=== PATIENT | female | born 1950 | race Caucasian/White ===

== ENCOUNTER 2017-07-22 08:02 | Inpatient (IN) | payer MEDICARE, OTHER ==
[~2017-07-22] VITALS: Ht 162.6 cm; Wt 89.3 kg
[2017-07-22] MEDS ORDERED: FAMOTIDINE 20 MG TABLET ONE (09:21)
[2017-07-22 09:29] LABS: ALBUMIN 3.5 g/dL (3.4-5.0); ANION GAP 8 mmol/L (5-15); CALCIUM 8.3 mg/dL (8.5-10.1); CHLORIDE 104 mmol/L (98-107); CREATININE 0.62 mg/dL (0.55-1.02)
[2017-07-22] MEDS ORDERED: FAMOTIDINE 20 MG TABLET PO ONE (09:30)
[2017-07-22 09:40] LABS: MEAN CORPUSCULAR VOLUME 102.9 fL (80-100); MEAN PLATELET VOLUME 9.1 fL (7.4-10.4); RED BLOOD COUNT 3.39 x10^6/uL (3.82-5.3); RED CELL DISTRIBUTION WIDTH 18.7 % (9.6-15.2)
[2017-07-22 09:41] LABS: PLATELET COUNT 24 x10^3/uL (130-400)
[2017-07-22 09:42] LABS: MD YES
[2017-07-22 09:50] LABS: LYMPH#(MANUAL) 4.43 x10^3/uL (1-3.4); LYMPHS% (MANUAL) 9 % (22-44)
[2017-07-22 09:52] LABS: ANISOCYTOSIS 1+; OTHER CELLS # (MANUAL) 44.77 x10^3/uL (0-0)
[2017-07-22 09:53] LABS: POLYCHROMASIA 1+
[2017-07-22 09:54] LABS: <PLATELET ESTIMATE> DECREASED; <PLT MORPHOLOGY> NORMAL PLT MORPH
[2017-07-22 09:55] LABS: OTHER CELLS % (MANUAL) 91 % (0-0)
[2017-07-22] MEDS ORDERED: SODIUM CHLORIDE 0.9% 1,000ML IVBOLUS ONE (10:00)
[2017-07-22] MEDS ORDERED: VANCOMYCIN PER PHARMACY MC ONE (10:30)
[2017-07-22] MEDS ORDERED: VANCOMYCIN 1,500 MG in SODIUM CHLORIDE 0.9% 250 ML IV ONE (10:30)
[2017-07-22] MEDS ORDERED: CEFTRIAXONE PMX 1GM/50ML 50 ML IVPB ONE (10:30)
[2017-07-22 10:37] LABS: HCT (SEDRATE) 35.8 % (34.6-47.8)
[2017-07-22 11:36] VITALS: BP 167/81
[2017-07-22 11:36] LABS: INTERNATIONAL NORMALIZED RATIO 1.02 (0.93-1.1); PROTHROMBIN TIME 10.6 Seconds (9.6-11.5)
[2017-07-22] MEDS ORDERED: ZOLPIDEM 5MG TABLET PO PRN (12:00)
[2017-07-22] MEDS ORDERED: hydrALAzine 20 MG/ML, 1ML IVPush PRN (12:00)
[2017-07-22] MEDS ORDERED: POLYETHYLENE GLYCOL 17 GM PACKET PO PRN (12:00)
[2017-07-22] MEDS ORDERED: BISACODYL 10 MG SUPP PR PRN (12:00)
[2017-07-22] MEDS ORDERED: LABETALOL 5MG/ML, 20ML IVPush PRN (12:00)
[2017-07-22 12:38] LABS: FREE T4 (FREE THYROXINE) 1.38 ng/dL (0.76-1.46); THYROID STIMULATING HORMONE 0.039 mIU/L (0.358-3.740)
[2017-07-22] MEDS ORDERED: PHARMACOKINETIC CONSULTATION MC ONE (13:00)
[2017-07-22] MEDS ORDERED: VANCOMYCIN PER PHARMACY MC PRN (13:00)
[2017-07-22] MEDS ORDERED: PHARMACOKINETIC MONITORING MC PRN (13:00)
[2017-07-22] MEDS: NS + 20MEQ KCL 1,000 ML IV SCH (13:03)
[2017-07-22] MEDS: CEFTRIAXONE PMX 1GM/50ML 50 ML IV SCH (13:04)
[2017-07-22] MEDS: DIPHENHYDRAMINE 25 MG CAPSULE PO PRN ×2 (13:05→22:23)
[2017-07-22 13:39] VITALS: BP 139/79
[2017-07-22 14:40] LABS: HIT RESULT POSITIVE (NEGATIVE)
[2017-07-22] MEDS: HYDROcodone/APAP 5/325 TABLET PO PRN (17:48)
[2017-07-22 19:03] LABS: MEAN CORPUSCULAR HEMOGLOBIN 35.6 pg (27.0-34.8); MEAN CORPUSCULAR HGB CONC 34.3 g/dL (32.4-35.8); MEAN CORPUSCULAR VOLUME 103.9 fL (80-100); MEAN PLATELET VOLUME 8.8 fL (7.4-10.4); RED BLOOD COUNT 2.85 x10^6/uL (3.82-5.3); RED CELL DISTRIBUTION WIDTH 18.7 % (9.6-15.2)
[2017-07-22 19:07] LABS: PLATELET COUNT 22 x10^3/uL (130-400)
[2017-07-22 19:12] VITALS: BP 110/64
[2017-07-22 19:22] LABS: MD YES
[2017-07-22 19:33] LABS: LYMPHS% (MANUAL) 4 % (22-44); SEG#(MANUAL) 0.55 x10^3/uL (1.8-6.8); SEGS% (MANUAL) 1 % (42-75)
[2017-07-22 19:35] LABS: BLASTS # (MANUAL) 52.35 x10^3/uL (0-0); BLASTS % (MANUAL) 95 % (0-0); NRBC % (MANUAL) 1 % (0-1)
[2017-07-22 19:37] LABS: ANISOCYTOSIS 1+; POLYCHROMASIA 1+
[2017-07-22 19:38] LABS: <PLATELET ESTIMATE> DECREASED
[2017-07-22 19:40] LABS: <PLT MORPHOLOGY> NORMAL PLT MORPH
[2017-07-23 00:47] VITALS: BP 145/74
[2017-07-23] MEDS: ACETAMINOPHEN 325 MG TABLET PO PRN (00:48)
[2017-07-23] MEDS: CEFTRIAXONE PMX 1GM/50ML 50 ML IV SCH ×2 (01:02→12:20)
[2017-07-23] MEDS: NS + 20MEQ KCL 1,000 ML IV SCH ×2 (02:13→21:55)
[2017-07-23] MEDS: VANCOMYCIN 1,500 MG in SODIUM CHLORIDE 0.9% 250 ML IV SCH ×2 (04:21→22:30)
[2017-07-23 04:48] LABS: ANION GAP 9 mmol/L (5-15); CHLORIDE 105 mmol/L (98-107)
[2017-07-23 04:54] LABS: ALANINE AMINOTRANSFERASE 94 U/L (12-78); ALBUMIN 2.8 g/dL (3.4-5.0); ALKALINE PHOSPHATASE 102 U/L (45-117); BILIRUBIN,TOTAL 0.9 mg/dL (0.2-1.0); CALCIUM 7.8 mg/dL (8.5-10.1); CREATININE 0.47 mg/dL (0.55-1.02)
[2017-07-23 05:12] LABS: MEAN CORPUSCULAR HEMOGLOBIN 35.2 pg (27.0-34.8); MEAN CORPUSCULAR VOLUME 103.7 fL (80-100); MEAN PLATELET VOLUME 9.3 fL (7.4-10.4); RED BLOOD COUNT 2.99 x10^6/uL (3.82-5.3); RED CELL DISTRIBUTION WIDTH 18.2 % (9.6-15.2)
[2017-07-23 05:13] LABS: PLATELET COUNT 19 x10^3/uL (130-400)
[2017-07-23 05:14] LABS: MD YES
[2017-07-23 05:16] LABS: ANISOCYTOSIS 1+; BLASTS # (MANUAL) 46.63 x10^3/uL (0-0); BLASTS % (MANUAL) 87 % (0-0); LYMPH#(MANUAL) 4.29 x10^3/uL (1-3.4); LYMPHS% (MANUAL) 8 % (22-44); MONOS#(MANUAL) 2.68 x10^3/uL (0.3-2.7); MONOS% (MANUAL) 5 % (2-9); POLYCHROMASIA 1+
[2017-07-23 05:17] LABS: <PLATELET ESTIMATE> DECREASED; <PLT MORPHOLOGY> NORMAL PLT MORPH
[2017-07-23 06:12] LABS: SEGS% (MANUAL) 0 % (42-75)
[2017-07-23] MEDS ORDERED: LIDOCAINE 1%, 20ML ONE (07:54)
[2017-07-23] MEDS ORDERED: MIDAZOLAM 1 MG/ML, 5ML ONE (08:00)
[2017-07-23] MEDS ORDERED: FENTANYL PF 100 MCG/2ML ONE (08:00)
[2017-07-23] MEDS ORDERED: FLUMAZENIL 0.1 MG/1 ML, 5ML ONE (08:01)
[2017-07-23] MEDS ORDERED: NALOXONE 1 MG/ML, 2ML ONE (08:01)
[2017-07-23 09:23] VITALS: BP 137/78
[2017-07-23] MEDS: PANTOPROZOLE 40MG TABLET PO SCH (09:51)
[2017-07-23] MEDS: HYDROcodone/APAP 5/325 TABLET PO PRN ×3 (11:47→21:54)
[2017-07-23 13:25] LABS: RED BLOOD COUNT 2.86 x10^6/uL (3.82-5.3)
[2017-07-23 13:28] LABS: ABSOLUTE RETICS # 0.091 x10^6/uL (0.5-2.5); RETICULOCYTE COUNT % 3.2 % (0.5-1.5)
[2017-07-23 13:33] LABS: ALANINE AMINOTRANSFERASE 100 U/L (12-78); ALBUMIN 2.7 g/dL (3.4-5.0); ANION GAP 9 mmol/L (5-15); CALCIUM 7.6 mg/dL (8.5-10.1); CHLORIDE 105 mmol/L (98-107); CREATININE 0.53 mg/dL (0.55-1.02)
[2017-07-23 14:00] LABS: ALKALINE PHOSPHATASE 125 U/L (45-117); FOLATE LEVEL 15.5 ng/mL (3.1-17.5); TOTAL PROTEIN 6.4 g/dL (6.4-8.2)
[2017-07-23 15:55] VITALS: BP 154/81
[2017-07-23 19:12] VITALS: BP 129/82
[2017-07-24] VITALS (7 sets, daily range): BP systolic 125–168; BP diastolic 69–78
[2017-07-24] MEDS: CEFTRIAXONE PMX 1GM/50ML 50 ML IV SCH ×3 (00:27→23:37)
[2017-07-24] MEDS: HYDROcodone/APAP 5/325 TABLET PO PRN ×4 (02:04→21:51)
[2017-07-24 04:44] LABS: ABSOLUTE RETICS # 0.077 x10^6/uL (0.5-2.5); RED BLOOD COUNT 2.69 x10^6/uL (3.82-5.3); RETICULOCYTE COUNT % 2.87 % (0.5-1.5)
[2017-07-24 04:47] LABS: MEAN CORPUSCULAR HEMOGLOBIN 34.9 pg (27.0-34.8); MEAN CORPUSCULAR HGB CONC 33.8 g/dL (32.4-35.8); MEAN CORPUSCULAR VOLUME 103.3 fL (80-100); RED BLOOD COUNT 2.71 x10^6/uL (3.82-5.3); RED CELL DISTRIBUTION WIDTH 18.9 % (9.6-15.2)
[2017-07-24 04:58] LABS: ALANINE AMINOTRANSFERASE 111 U/L (12-78); ALBUMIN 2.4 g/dL (3.4-5.0); ANION GAP 8 mmol/L (5-15); CALCIUM 7.4 mg/dL (8.5-10.1); CHLORIDE 105 mmol/L (98-107); CREATININE 0.52 mg/dL (0.55-1.02)
[2017-07-24 05:05] LABS: ALKALINE PHOSPHATASE 144 U/L (45-117); BILIRUBIN,TOTAL 1.1 mg/dL (0.2-1.0); PLATELET COUNT 16 x10^3/uL (130-400)
[2017-07-24 05:08] LABS: MD YES
[2017-07-24 05:10] LABS: BLASTS # (MANUAL) 59.14 x10^3/uL (0-0); LYMPH#(MANUAL) 7.39 x10^3/uL (1-3.4); LYMPHS% (MANUAL) 11 % (22-44); MONOS#(MANUAL) 0.67 x10^3/uL (0.3-2.7); MONOS% (MANUAL) 1 % (2-9)
[2017-07-24 05:12] LABS: BLASTS % (MANUAL) 88 % (0-0)
[2017-07-24 05:13] LABS: <PLATELET ESTIMATE> DECREASED; <PLT MORPHOLOGY> NORMAL PLT MORPH; ANISOCYTOSIS 1+; POLYCHROMASIA 1+; SEGS% (MANUAL) 0 % (42-75)
[2017-07-24 05:15] LABS: SEDIMENTATION RATE 111 mm/hr (0-20)
[2017-07-24] MEDS: ONDANSETRON ODT 4 MG PO PRN (08:31)
[2017-07-24] MEDS: ALLOPURINOL 300 MG TABLET PO SCH (08:31)
[2017-07-24] MEDS: PANTOPROZOLE 40MG TABLET PO SCH (08:31)
[2017-07-24] MEDS: VANCOMYCIN 1,400 MG in SODIUM CHLORIDE 0.9% 250 ML IV SCH ×2 (10:32→21:33)
[2017-07-24] MEDS: NS + 20MEQ KCL 1,000 ML IV SCH (10:33)
[2017-07-24] MEDS ORDERED: LIDOCAINE 1%, 10ML INFIL STA (12:31)
[2017-07-24] MEDS ORDERED: LIDOCAINE 1%-EPI 1:100K, 50ML INFIL STA (12:39)
[2017-07-24] MEDS ORDERED: LIDOCAINE/PF 1%-EPI 1:200K, 30 ML INFIL ONE (13:00)
[2017-07-24] MEDS: DOCUSATE 100 MG CAPSULE PO PRN (14:30)
[2017-07-24] MEDS ORDERED: DIPHENHYDRAMINE 50 MG/ML, 1ML IVPush ONE (16:00)
[2017-07-24] MEDS ORDERED: ACETAMINOPHEN 325 MG TABLET PO ONE (16:00)
[2017-07-24 16:43] LABS: MEAN CORPUSCULAR HEMOGLOBIN 35.3 pg (27.0-34.8); MEAN CORPUSCULAR VOLUME 103.9 fL (80-100); MEAN PLATELET VOLUME 8.9 fL (7.4-10.4); RED BLOOD COUNT 2.62 x10^6/uL (3.82-5.3); RED CELL DISTRIBUTION WIDTH 18.7 % (9.6-15.2)
[2017-07-24 16:44] LABS: MD YES
[2017-07-24 16:45] LABS: BLASTS # (MANUAL) 71.58 x10^3/uL (0-0); BLASTS % (MANUAL) 92 % (0-0); LYMPH#(MANUAL) 4.67 x10^3/uL (1-3.4); LYMPHS% (MANUAL) 6 % (22-44); MONOS#(MANUAL) 0.78 x10^3/uL (0.3-2.7); MONOS% (MANUAL) 1 % (2-9); NRBC % (MANUAL) 1 % (0-1); PLATELET COUNT 20 x10^3/uL (130-400); SEG#(MANUAL) 0.78 x10^3/uL (1.8-6.8); SEGS% (MANUAL) 1 % (42-75)
[2017-07-24 16:46] LABS: <PLATELET ESTIMATE> DECREASED; <PLT MORPHOLOGY> NORMAL PLT MORPH; ANISOCYTOSIS 1+
[2017-07-24] MEDS ORDERED: HYDROXYUREA 500 MG CAPSULE PO ONE (18:00)
[2017-07-24] MEDS ORDERED: SODIUM CHLORIDE 0.9% 1,000 ML IV SCH (21:00)
[2017-07-25 02:56] VITALS: BP 143/74
[2017-07-25 04:37] LABS: ABSOLUTE RETICS # 0.043 x10^6/uL (0.5-2.5); MEAN CORPUSCULAR HEMOGLOBIN 35.4 pg (27.0-34.8); MEAN CORPUSCULAR HGB CONC 34.3 g/dL (32.4-35.8); MEAN PLATELET VOLUME 8.3 fL (7.4-10.4); RED BLOOD COUNT 2.39 x10^6/uL (3.82-5.3); RED CELL DISTRIBUTION WIDTH 18.9 % (9.6-15.2); RETICULOCYTE COUNT % 1.81 % (0.5-1.5)
[2017-07-25 04:42] LABS: PLATELET COUNT 49 x10^3/uL (130-400)
[2017-07-25 04:46] LABS: ALBUMIN 2.3 g/dL (3.4-5.0); ANION GAP 10 mmol/L (5-15); CALCIUM 7.9 mg/dL (8.5-10.1); CHLORIDE 103 mmol/L (98-107)
[2017-07-25 04:51] LABS: ALANINE AMINOTRANSFERASE 93 U/L (12-78); ALKALINE PHOSPHATASE 175 U/L (45-117); BILIRUBIN, DIRECT 0.7 mg/dL (0.1-0.2); BILIRUBIN,INDIRECT 0.6 mg/dL (0.0-2.0); BILIRUBIN,TOTAL 1.3 mg/dL (0.2-1.0); CREATININE 0.44 mg/dL (0.55-1.02); TOTAL PROTEIN 6.3 g/dL (6.4-8.2)
[2017-07-25] MEDS ORDERED: FUROSEMIDE 20 MG/2 ML IV ONE (05:00)
[2017-07-25 05:01] LABS: MD YES
[2017-07-25 05:40] LABS: LYMPH#(MANUAL) 3.46 x10^3/uL (1-3.4); LYMPHS% (MANUAL) 5 % (22-44); SEG#(MANUAL) 0.69 x10^3/uL (1.8-6.8); SEGS% (MANUAL) 1 % (42-75)
[2017-07-25 05:41] LABS: BLASTS # (MANUAL) 64.95 x10^3/uL (0-0); BLASTS % (MANUAL) 94 % (0-0)
[2017-07-25 05:42] LABS: ANISOCYTOSIS 1+
[2017-07-25 05:43] LABS: <PLATELET ESTIMATE> DECREASED; <PLT MORPHOLOGY> NORMAL PLT MORPH
[2017-07-25 06:48] VITALS: BP 147/77
[2017-07-25] MEDS ORDERED: POTASSIUM CHLORIDE 20 MEQ TAB.ER.PRT PO ONE (07:30)
[2017-07-25] MEDS ORDERED: OMNIPAQUE 350 MG/ML, 100ML BOTTLE ONE (08:42)
[2017-07-25] MEDS: ALLOPURINOL 300 MG TABLET PO SCH (08:47)
[2017-07-25] MEDS: PANTOPROZOLE 40MG TABLET PO SCH (08:47)
[2017-07-25] MEDS: SODIUM CHLORIDE 0.9% 1,000 ML IV SCH ×2 (08:48→18:17)
[2017-07-25] MEDS: VANCOMYCIN 1,400 MG in SODIUM CHLORIDE 0.9% 250 ML IV SCH ×2 (10:46→23:10)
[2017-07-25] MEDS ORDERED: ALBUTEROL SULFATE 2.5 MG/3 ML NPPB PRN (12:00)
[2017-07-25] MEDS ORDERED: FOSAPREPITANT 150 MG in SODIUM CHLORIDE 0.9% 145 ML IV ONE (12:30)
[2017-07-25] MEDS: ONDANSETRON 16 MG, DEXAMETHASONE 10 MG in SODIUM CHLORIDE 0.9% 50 ML IVPB SCH (12:53)
[2017-07-25 13:16] VITALS: BP 125/71
[2017-07-25] MEDS: IDARUBICIN IV SCH (14:09)
[2017-07-25] MEDS: SODIUM CHLORIDE 0.9% IV SCH (14:10)
[2017-07-25] MEDS: CYTARABINE IV SCH (14:10)
[2017-07-25] MEDS: CEFTRIAXONE PMX 2GM/50ML 50 ML IV SCH (14:45)
[2017-07-25] MEDS: ACYCLOVIR 200 MG CAPSULE PO SCH ×2 (15:08→20:50)
[2017-07-25 18:14] LABS: ALANINE AMINOTRANSFERASE 99 U/L (12-78); ALBUMIN 2.2 g/dL (3.4-5.0); ANION GAP 7 mmol/L (5-15); CALCIUM 7.7 mg/dL (8.5-10.1); CHLORIDE 102 mmol/L (98-107); CREATININE 0.54 mg/dL (0.55-1.02); MD YES; MEAN CORPUSCULAR HEMOGLOBIN 34.9 pg (27.0-34.8); MEAN CORPUSCULAR HGB CONC 33.9 g/dL (32.4-35.8); MEAN PLATELET VOLUME 8.4 fL (7.4-10.4); RED BLOOD COUNT 2.85 x10^6/uL (3.82-5.3); RED CELL DISTRIBUTION WIDTH 18.5 % (9.6-15.2)
[2017-07-25 18:15] LABS: PLATELET COUNT 35 x10^3/uL (130-400)
[2017-07-25 18:16] LABS: ALKALINE PHOSPHATASE 248 U/L (45-117); BILIRUBIN,TOTAL 1.3 mg/dL (0.2-1.0); TOTAL PROTEIN 6.2 g/dL (6.4-8.2)
[2017-07-25 18:21] LABS: LYMPH#(MANUAL) 3.56 x10^3/uL (1-3.4); LYMPHS% (MANUAL) 9 % (22-44); MONOS% (MANUAL) 1 % (2-9)
[2017-07-25 18:22] LABS: BLASTS # (MANUAL) 35.64 x10^3/uL (0-0); BLASTS % (MANUAL) 90 % (0-0)
[2017-07-25 18:24] LABS: ANISOCYTOSIS 1+
[2017-07-25 18:25] LABS: <PLATELET ESTIMATE> DECREASED; <PLT MORPHOLOGY> NORMAL PLT MORPH
[2017-07-25 19:27] VITALS: BP 134/81
[2017-07-25] MEDS ORDERED: SODIUM CHLORIDE 0.9% 1,000 ML IV SCH (21:00)
[2017-07-25] MEDS: DOCUSATE 100 MG CAPSULE PO PRN (22:00)
[2017-07-26 02:01] VITALS: BP 150/76
[2017-07-26] MEDS: SODIUM CHLORIDE 0.9% 1,000 ML IV SCH ×3 (03:52→21:00)
[2017-07-26 04:38] LABS: ANION GAP 9 mmol/L (5-15); CALCIUM 7.7 mg/dL (8.5-10.1); CHLORIDE 108 mmol/L (98-107)
[2017-07-26 04:42] LABS: CREATININE 0.37 mg/dL (0.55-1.02)
[2017-07-26 04:43] LABS: ALANINE AMINOTRANSFERASE 90 U/L (12-78); ALKALINE PHOSPHATASE 223 U/L (45-117); BILIRUBIN,TOTAL 0.9 mg/dL (0.2-1.0); TOTAL PROTEIN 5.9 g/dL (6.4-8.2)
[2017-07-26 04:46] LABS: ABSOLUTE RETICS # 0.036 x10^6/uL (0.5-2.5); RETICULOCYTE COUNT % 1.62 % (0.5-1.5)
[2017-07-26 04:50] LABS: RED BLOOD COUNT 2.2 x10^6/uL (3.82-5.3)
[2017-07-26 06:07] LABS: MEAN CORPUSCULAR HEMOGLOBIN 35.1 pg (27.0-34.8); MEAN CORPUSCULAR HGB CONC 33.8 g/dL (32.4-35.8); MEAN CORPUSCULAR VOLUME 103.7 fL (80-100); RED BLOOD COUNT 2.21 x10^6/uL (3.82-5.3); RED CELL DISTRIBUTION WIDTH 18.9 % (9.6-15.2)
[2017-07-26 06:34] LABS: MD YES
[2017-07-26 06:38] LABS: MEAN PLATELET VOLUME 9.1 fL (7.4-10.4)
[2017-07-26 06:40] LABS: BLASTS # (MANUAL) 12.01 x10^3/uL (0-0); LYMPH#(MANUAL) 3.16 x10^3/uL (1-3.4); LYMPHS% (MANUAL) 20 % (22-44); MONOS#(MANUAL) 0.16 x10^3/uL (0.3-2.7); MONOS% (MANUAL) 1 % (2-9); SEG#(MANUAL) 0.47 x10^3/uL (1.8-6.8); SEGS% (MANUAL) 3 % (42-75)
[2017-07-26 06:41] LABS: <PLATELET ESTIMATE> DECREASED; <PLT MORPHOLOGY> NORMAL PLT MORPH; ANISOCYTOSIS 1+
[2017-07-26 06:43] LABS: BLASTS % (MANUAL) 76 % (0-0); PLATELET COUNT 34 x10^3/uL (130-400)
[2017-07-26 07:27] VITALS: BP 147/80
[2017-07-26] MEDS: PANTOPROZOLE 40MG TABLET PO SCH (08:24)
[2017-07-26] MEDS: ACYCLOVIR 200 MG CAPSULE PO SCH ×2 (08:24→20:39)
[2017-07-26] MEDS: ALLOPURINOL 300 MG TABLET PO SCH (08:24)
[2017-07-26] MEDS ORDERED: POTASSIUM CHLORIDE 20 MEQ TAB.ER.PRT PO ONE (08:30)
[2017-07-26] MEDS ORDERED: POTASSIUM PHOSPHATE 22 MEQ in SODIUM CHLORIDE 0.9% 500 ML IV ONE (08:30)
[2017-07-26] MEDS: VANCOMYCIN 1,400 MG in SODIUM CHLORIDE 0.9% 250 ML IV SCH (10:51)
[2017-07-26 12:32] VITALS: BP 137/78
[2017-07-26] MEDS: CEFTRIAXONE PMX 2GM/50ML 50 ML IV SCH (14:39)
[2017-07-26] MEDS: ONDANSETRON 16 MG, DEXAMETHASONE 10 MG in SODIUM CHLORIDE 0.9% 50 ML IVPB SCH (15:58)
[2017-07-26] MEDS: IDARUBICIN IV SCH (16:44)
[2017-07-26] MEDS: SODIUM CHLORIDE 0.9% IV SCH (16:46)
[2017-07-26] MEDS: CYTARABINE IV SCH (16:46)
[2017-07-26] MEDS ORDERED: CEFTAROLINE 600 MG in SODIUM CHLORIDE 0.9% 100 ML IV SCH (17:00)
[2017-07-26 18:22] LABS: ALANINE AMINOTRANSFERASE 143 U/L (12-78); ALBUMIN 1.8 g/dL (3.4-5.0); ANION GAP 11 mmol/L (5-15); CALCIUM 7.1 mg/dL (8.5-10.1); CHLORIDE 113 mmol/L (98-107); CREATININE 0.38 mg/dL (0.55-1.02)
[2017-07-26 18:26] LABS: ALKALINE PHOSPHATASE 195 U/L (45-117); BILIRUBIN,TOTAL 0.4 mg/dL (0.2-1.0); TOTAL PROTEIN 5.2 g/dL (6.4-8.2)
[2017-07-26 19:01] LABS: MEAN CORPUSCULAR HEMOGLOBIN 34.7 pg (27.0-34.8); MEAN CORPUSCULAR HGB CONC 33.6 g/dL (32.4-35.8); MEAN CORPUSCULAR VOLUME 103.2 fL (80-100); MEAN PLATELET VOLUME 8.5 fL (7.4-10.4); RED BLOOD COUNT 2.04 x10^6/uL (3.82-5.3)
[2017-07-26 19:03] VITALS: BP 136/75
[2017-07-26 19:04] LABS: PLATELET COUNT 29 x10^3/uL (130-400)
[2017-07-26 19:34] LABS: MD YES
[2017-07-26 19:40] LABS: LYMPH#(MANUAL) 2.07 x10^3/uL (1-3.4); LYMPHS% (MANUAL) 23 % (22-44)
[2017-07-26 19:42] LABS: BLASTS # (MANUAL) 6.93 x10^3/uL (0-0); BLASTS % (MANUAL) 77 % (0-0); NRBC % (MANUAL) 1 % (0-1)
[2017-07-26 19:43] LABS: ANISOCYTOSIS 1+
[2017-07-26 19:44] LABS: <PLATELET ESTIMATE> DECREASED; <PLT MORPHOLOGY> NORMAL PLT MORPH
[2017-07-26] MEDS: DIPHENHYDRAMINE 25 MG CAPSULE PO PRN (20:39)
[2017-07-26] MEDS: ACETAMINOPHEN 325 MG TABLET PO PRN (20:39)
[2017-07-27] VITALS (9 sets, daily range): BP systolic 117–153; BP diastolic 75–83
[2017-07-27] MEDS: ONDANSETRON 2MG/ML, 2ML IVPush PRN ×2 (01:59→10:18)
[2017-07-27 04:24] LABS: ALANINE AMINOTRANSFERASE 141 U/L (12-78); ALBUMIN 1.9 g/dL (3.4-5.0); ANION GAP 8 mmol/L (5-15); CALCIUM 7.6 mg/dL (8.5-10.1); CHLORIDE 110 mmol/L (98-107); CREATININE 0.39 mg/dL (0.55-1.02)
[2017-07-27 04:27] LABS: ALKALINE PHOSPHATASE 196 U/L (45-117); BILIRUBIN,TOTAL 0.5 mg/dL (0.2-1.0); TOTAL PROTEIN 5.6 g/dL (6.4-8.2)
[2017-07-27 04:29] LABS: RETICULOCYTE COUNT % 1.83 % (0.5-1.5)
[2017-07-27] MEDS: DIPHENHYDRAMINE 25 MG CAPSULE PO PRN ×2 (04:43→21:34)
[2017-07-27] MEDS: ACETAMINOPHEN 325 MG TABLET PO PRN (04:43)
[2017-07-27] MEDS: CEFTAROLINE 600 MG in SODIUM CHLORIDE 0.9% 250 ML IV SCH ×2 (04:52→16:03)
[2017-07-27 06:03] LABS: MEAN CORPUSCULAR HEMOGLOBIN 35.4 pg (27.0-34.8); MEAN CORPUSCULAR HGB CONC 34.5 g/dL (32.4-35.8); MEAN CORPUSCULAR VOLUME 102.8 fL (80-100)
[2017-07-27 06:06] LABS: PLATELET COUNT 24 x10^3/uL (130-400)
[2017-07-27 06:14] LABS: MD YES
[2017-07-27 06:15] LABS: BAND#(MANUAL) 0.02 x10^3/uL; BANDS%(MANUAL) 1 % (0-7); BLASTS # (MANUAL) 0.81 x10^3/uL (0-0); LYMPH#(MANUAL) 0.86 x10^3/uL (1-3.4); LYMPHS% (MANUAL) 48 % (22-44); MONOS#(MANUAL) 0.04 x10^3/uL (0.3-2.7); MONOS% (MANUAL) 2 % (2-9); SEG#(MANUAL) 0.07 x10^3/uL (1.8-6.8); SEGS% (MANUAL) 4 % (42-75)
[2017-07-27 06:16] LABS: BLASTS % (MANUAL) 45 % (0-0)
[2017-07-27 06:17] LABS: <PLATELET ESTIMATE> DECREASED; <PLT MORPHOLOGY> NORMAL PLT MORPH
[2017-07-27 06:18] LABS: ANISOCYTOSIS 1+
[2017-07-27 06:22] LABS: NRBC % (MANUAL) 1 % (0-1)
[2017-07-27] MEDS ORDERED: LACTULOSE 20 GM/30 ML UDC PO PRN (09:00)
[2017-07-27] MEDS: DOCUSATE 100 MG CAPSULE PO SCH ×2 (09:00→21:33)
[2017-07-27] MEDS: ALLOPURINOL 300 MG TABLET PO SCH (09:42)
[2017-07-27] MEDS: ACYCLOVIR 200 MG CAPSULE PO SCH ×2 (09:42→21:34)
[2017-07-27] MEDS: PANTOPROZOLE 40MG TABLET PO SCH (09:42)
[2017-07-27 18:01] LABS: ALANINE AMINOTRANSFERASE 118 U/L (12-78); ALBUMIN 1.8 g/dL (3.4-5.0); ANION GAP 9 mmol/L (5-15); CALCIUM 6.7 mg/dL (8.5-10.1); CHLORIDE 113 mmol/L (98-107); CREATININE 0.38 mg/dL (0.55-1.02)
[2017-07-27 18:03] LABS: ALKALINE PHOSPHATASE 165 U/L (45-117); BILIRUBIN,TOTAL 0.6 mg/dL (0.2-1.0)
[2017-07-27 18:04] LABS: MEAN CORPUSCULAR HEMOGLOBIN 34.3 pg (27.0-34.8); MEAN CORPUSCULAR HGB CONC 34.8 g/dL (32.4-35.8); MEAN CORPUSCULAR VOLUME 98.6 fL (80-100); MEAN PLATELET VOLUME 9.1 fL (7.4-10.4); RED BLOOD COUNT 2.47 x10^6/uL (3.82-5.3); RED CELL DISTRIBUTION WIDTH 22.7 % (9.6-15.2)
[2017-07-27 18:20] LABS: PLATELET COUNT 17 x10^3/uL (130-400)
[2017-07-27] MEDS: ONDANSETRON 16 MG, DEXAMETHASONE 10 MG in SODIUM CHLORIDE 0.9% 50 ML IVPB SCH (18:24)
[2017-07-27] MEDS: CYTARABINE IV SCH (18:26)
[2017-07-27] MEDS: IDARUBICIN IV SCH (18:26)
[2017-07-27] MEDS: SODIUM CHLORIDE 0.9% IV SCH (18:26)
[2017-07-28 01:16] VITALS: BP 150/79
[2017-07-28] MEDS: CEFTAROLINE 600 MG in SODIUM CHLORIDE 0.9% 250 ML IV SCH ×2 (04:24→16:17)
[2017-07-28 04:51] LABS: ABSOLUTE RETICS # 0.024 x10^6/uL (0.5-2.5); MEAN CORPUSCULAR HGB CONC 34.3 g/dL (32.4-35.8); MEAN PLATELET VOLUME 8.9 fL (7.4-10.4); RED BLOOD COUNT 2.57 x10^6/uL (3.82-5.3); RED CELL DISTRIBUTION WIDTH 22.1 % (9.6-15.2); RETICULOCYTE COUNT % 0.95 % (0.5-1.5)
[2017-07-28 04:54] LABS: PLATELET COUNT 16 x10^3/uL (130-400)
[2017-07-28 04:58] LABS: ALANINE AMINOTRANSFERASE 112 U/L (12-78); ANION GAP 7 mmol/L (5-15); CHLORIDE 108 mmol/L (98-107); CREATININE 0.41 mg/dL (0.55-1.02)
[2017-07-28 05:02] LABS: ALKALINE PHOSPHATASE 160 U/L (45-117); BILIRUBIN,TOTAL 0.7 mg/dL (0.2-1.0); TOTAL PROTEIN 5.5 g/dL (6.4-8.2)
[2017-07-28] MEDS: ONDANSETRON 2MG/ML, 2ML IVPush PRN (05:32)
[2017-07-28 05:44] LABS: MD YES
[2017-07-28 05:53] LABS: <PLATELET ESTIMATE> DECREASED; LYMPH#(MANUAL) 0.49 x10^3/uL (1-3.4); LYMPHS% (MANUAL) 98 % (22-44); SEG#(MANUAL) 0.02 x10^3/uL (1.8-6.8); SEGS% (MANUAL) 3 % (42-75)
[2017-07-28 05:54] LABS: <PLT MORPHOLOGY> NORMAL PLT MORPH
[2017-07-28 05:55] LABS: ANISOCYTOSIS 1+
[2017-07-28 07:40] VITALS: BP 147/84
[2017-07-28] MEDS ORDERED: SODIUM CHLORIDE 0.9% 1,000 ML IV SCH (08:00)
[2017-07-28] MEDS: SODIUM CHLORIDE 0.9% 1,000 ML IV SCH (08:13)
[2017-07-28] MEDS: PANTOPROZOLE 40MG TABLET PO SCH (08:13)
[2017-07-28] MEDS: ACYCLOVIR 200 MG CAPSULE PO SCH ×2 (08:13→20:37)
[2017-07-28] MEDS: ALLOPURINOL 300 MG TABLET PO SCH (08:14)
[2017-07-28] MEDS: DOCUSATE 100 MG CAPSULE PO SCH ×2 (08:14→20:35)
[2017-07-28] MEDS ORDERED: FOSAPREPITANT 150 MG in SODIUM CHLORIDE 0.9% 145 ML IV ONE (12:30)
[2017-07-28 14:09] VITALS: BP 138/77
[2017-07-28] MEDS: ONDANSETRON 16 MG, DEXAMETHASONE 10 MG in SODIUM CHLORIDE 0.9% 50 ML IVPB SCH (18:37)
[2017-07-28 19:16] LABS: ALANINE AMINOTRANSFERASE 85 U/L (12-78); ALBUMIN 1.8 g/dL (3.4-5.0); ANION GAP 6 mmol/L (5-15); CHLORIDE 111 mmol/L (98-107)
[2017-07-28 19:36] LABS: MEAN CORPUSCULAR HEMOGLOBIN 33.9 pg (27.0-34.8); MEAN CORPUSCULAR HGB CONC 34.4 g/dL (32.4-35.8); MEAN CORPUSCULAR VOLUME 98.8 fL (80-100); MEAN PLATELET VOLUME 8.8 fL (7.4-10.4); RED BLOOD COUNT 2.24 x10^6/uL (3.82-5.3); RED CELL DISTRIBUTION WIDTH 21.4 % (9.6-15.2)
[2017-07-28 19:37] LABS: PLATELET COUNT 11 x10^3/uL (130-400)
[2017-07-28 19:38] LABS: MD YES
[2017-07-28 19:59] LABS: ALKALINE PHOSPHATASE 142 U/L (45-117); BILIRUBIN,TOTAL 0.9 mg/dL (0.2-1.0); CREATININE 0.31 mg/dL (0.55-1.02); TOTAL PROTEIN 4.9 g/dL (6.4-8.2)
[2017-07-28 20:14] VITALS: BP 142/75
[2017-07-28 20:23] LABS: <PLATELET ESTIMATE> DECREASED; <PLT MORPHOLOGY> QNS FOR PLT MORPH; ANISOCYTOSIS 1+; LYMPH#(MANUAL) 0.95 x10^3/uL (1-3.4); LYMPHS% (MANUAL) 95 % (22-44); MONOS#(MANUAL) 0.01 x10^3/uL (0.3-2.7); MONOS% (MANUAL) 1 % (2-9)
[2017-07-28 20:24] LABS: BLASTS # (MANUAL) 0.04 x10^3/uL (0-0); BLASTS % (MANUAL) 4 % (0-0)
[2017-07-28] MEDS: SODIUM CHLORIDE 0.9% IV SCH (20:32)
[2017-07-28] MEDS: CYTARABINE IV SCH (20:32)
[2017-07-28] MEDS ORDERED: [UNRECOGNIZED DRUG - OTHER] MC PRN (22:30)
[2017-07-29 03:55] VITALS: BP 166/93
[2017-07-29 04:32] LABS: ABSOLUTE RETICS # 0.031 x10^6/uL (0.5-2.5); RETICULOCYTE COUNT % 1.12 % (0.5-1.5)
[2017-07-29 04:37] LABS: MEAN CORPUSCULAR HEMOGLOBIN 34.5 pg (27.0-34.8); MEAN CORPUSCULAR VOLUME 98.6 fL (80-100); RED BLOOD COUNT 2.78 x10^6/uL (3.82-5.3); RED CELL DISTRIBUTION WIDTH 20.4 % (9.6-15.2)
[2017-07-29 04:40] LABS: CHLORIDE 105 mmol/L (98-107)
[2017-07-29 04:47] LABS: ALANINE AMINOTRANSFERASE 111 U/L (12-78); ALBUMIN 2.3 g/dL (3.4-5.0); ALKALINE PHOSPHATASE 156 U/L (45-117); ANION GAP 7 mmol/L (5-15); CALCIUM 8.1 mg/dL (8.5-10.1); CREATININE 0.41 mg/dL (0.55-1.02); TOTAL PROTEIN 5.8 g/dL (6.4-8.2)
[2017-07-29] MEDS: CEFTAROLINE 600 MG in SODIUM CHLORIDE 0.9% 250 ML IV SCH ×2 (04:57→18:14)
[2017-07-29] MEDS: SODIUM CHLORIDE 0.9% 1,000 ML IV SCH (04:58)
[2017-07-29 05:53] LABS: MD YES
[2017-07-29 05:55] LABS: MEAN PLATELET VOLUME 9.4 fL (7.4-10.4)
[2017-07-29 05:56] LABS: PLATELET COUNT 13 x10^3/uL (130-400)
[2017-07-29 05:58] LABS: LYMPH#(MANUAL) 0.44 x10^3/uL (1-3.4); LYMPHS% (MANUAL) 88 % (22-44); MONOS#(MANUAL) 0.02 x10^3/uL (0.3-2.7); MONOS% (MANUAL) 4 % (2-9)
[2017-07-29 05:59] LABS: ANISOCYTOSIS 1+; BLASTS # (MANUAL) 0.04 x10^3/uL (0-0); BLASTS % (MANUAL) 8 % (0-0); SEGS% (MANUAL) 0 % (42-75)
[2017-07-29 06:00] LABS: <PLATELET ESTIMATE> DECREASED; <PLT MORPHOLOGY> NORMAL PLT MORPH
[2017-07-29] MEDS: PANTOPROZOLE 40MG TABLET PO SCH (07:53)
[2017-07-29] MEDS: ACYCLOVIR 200 MG CAPSULE PO SCH ×2 (07:53→20:36)
[2017-07-29] MEDS: DOCUSATE 100 MG CAPSULE PO SCH ×2 (07:53→20:36)
[2017-07-29] MEDS: ALLOPURINOL 300 MG TABLET PO SCH (07:53)
[2017-07-29] MEDS: ONDANSETRON ODT 4 MG PO PRN (07:57)
[2017-07-29 08:45] VITALS: BP 152/75
[2017-07-29 12:51] VITALS: BP 164/110
[2017-07-29 13:04] VITALS: BP 167/84
[2017-07-29 19:24] VITALS: BP 162/79
[2017-07-29] MEDS: ONDANSETRON 16 MG, DEXAMETHASONE 10 MG in SODIUM CHLORIDE 0.9% 50 ML IVPB SCH (20:36)
[2017-07-29] MEDS: CYTARABINE IV SCH (21:44)
[2017-07-29] MEDS: SODIUM CHLORIDE 0.9% IV SCH (21:44)
[2017-07-30] VITALS (8 sets, daily range): BP systolic 146–171; BP diastolic 72–91
[2017-07-30] MEDS ORDERED: DIPHENHYDRAMINE 25 MG CAPSULE PO ONE (01:00)
[2017-07-30] MEDS ORDERED: ACETAMINOPHEN 325 MG TABLET PO ONE (01:00)
[2017-07-30 02:39] LABS: RETICULOCYTE COUNT % 1.81 % (0.5-1.5)
[2017-07-30 02:40] LABS: MEAN CORPUSCULAR HEMOGLOBIN 33.9 pg (27.0-34.8); MEAN CORPUSCULAR HGB CONC 34.2 g/dL (32.4-35.8); MEAN PLATELET VOLUME 7.3 fL (7.4-10.4); RED BLOOD COUNT 2.27 x10^6/uL (3.82-5.3); RED CELL DISTRIBUTION WIDTH 19.4 % (9.6-15.2)
[2017-07-30 02:42] LABS: PLATELET COUNT 10 x10^3/uL (130-400)
[2017-07-30 02:47] LABS: ALANINE AMINOTRANSFERASE 77 U/L (12-78); ALBUMIN 2.1 g/dL (3.4-5.0); ANION GAP 7 mmol/L (5-15); CALCIUM 7.8 mg/dL (8.5-10.1); CHLORIDE 106 mmol/L (98-107); CREATININE 0.41 mg/dL (0.55-1.02)
[2017-07-30 02:51] LABS: ALKALINE PHOSPHATASE 128 U/L (45-117); BILIRUBIN,TOTAL 0.8 mg/dL (0.2-1.0); TOTAL PROTEIN 5.2 g/dL (6.4-8.2)
[2017-07-30 02:58] LABS: MD YES
[2017-07-30 03:07] LABS: LYMPH#(MANUAL) 0.26 x10^3/uL (1-3.4); LYMPHS% (MANUAL) 88 % (22-44); MONOS#(MANUAL) 0.01 x10^3/uL (0.3-2.7); MONOS% (MANUAL) 2 % (2-9); SEG#(MANUAL) 0.02 x10^3/uL (1.8-6.8); SEGS% (MANUAL) 6 % (42-75)
[2017-07-30 03:08] LABS: BLASTS # (MANUAL) 0.01 x10^3/uL (0-0); BLASTS % (MANUAL) 4 % (0-0)
[2017-07-30 03:09] LABS: <PLATELET ESTIMATE> DECREASED; <PLT MORPHOLOGY> NORMAL PLT MORPH; ANISOCYTOSIS 1+
[2017-07-30] MEDS: ONDANSETRON ODT 4 MG PO PRN ×2 (04:23→19:32)
[2017-07-30] MEDS: CEFTAROLINE 600 MG in SODIUM CHLORIDE 0.9% 250 ML IV SCH ×2 (05:38→17:21)
[2017-07-30] MEDS: PANTOPROZOLE 40MG TABLET PO SCH (07:35)
[2017-07-30] MEDS: ONDANSETRON 2MG/ML, 2ML IVPush PRN (07:35)
[2017-07-30] MEDS: ACYCLOVIR 200 MG CAPSULE PO SCH ×2 (08:35→22:37)
[2017-07-30] MEDS: DOCUSATE 100 MG CAPSULE PO SCH ×2 (08:35→22:37)
[2017-07-30] MEDS: ALLOPURINOL 300 MG TABLET PO SCH (08:35)
[2017-07-30] MEDS: SODIUM CHLORIDE 0.9% 1,000 ML IV SCH ×2 (08:41→22:40)
[2017-07-30] MEDS: ACETAMINOPHEN 325 MG TABLET PO PRN (09:20)
[2017-07-30] MEDS: DIPHENHYDRAMINE 25 MG CAPSULE PO PRN (09:20)
[2017-07-30] MEDS: POSACONAZOLE 200 MG/5 ML ORAL SUSP PO SCH ×2 (11:35→22:38)
[2017-07-30] MEDS: ONDANSETRON 16 MG, DEXAMETHASONE 10 MG in SODIUM CHLORIDE 0.9% 50 ML IVPB SCH (21:25)
[2017-07-30] MEDS: CYTARABINE IV SCH (22:19)
[2017-07-30] MEDS: SODIUM CHLORIDE 0.9% IV SCH (22:19)
[2017-07-31] VITALS (10 sets, daily range): BP systolic 138–168; BP diastolic 70–90
[2017-07-31] MEDS: CEFTAROLINE 600 MG in SODIUM CHLORIDE 0.9% 250 ML IV SCH ×2 (05:26→17:33)
[2017-07-31 05:37] LABS: ABSOLUTE RETICS # 0.025 x10^6/uL (0.5-2.5); RETICULOCYTE COUNT % 1.14 % (0.5-1.5)
[2017-07-31 05:39] LABS: MEAN CORPUSCULAR HEMOGLOBIN 34.2 pg (27.0-34.8); MEAN CORPUSCULAR HGB CONC 34.8 g/dL (32.4-35.8); MEAN CORPUSCULAR VOLUME 98.2 fL (80-100); MEAN PLATELET VOLUME 7.5 fL (7.4-10.4); RED BLOOD COUNT 2.18 x10^6/uL (3.82-5.3); RED CELL DISTRIBUTION WIDTH 19.2 % (9.6-15.2)
[2017-07-31 05:40] LABS: PLATELET COUNT 42 x10^3/uL (130-400)
[2017-07-31 05:50] LABS: CHLORIDE 106 mmol/L (98-107)
[2017-07-31 06:01] LABS: ALANINE AMINOTRANSFERASE 65 U/L (12-78); ALBUMIN 2.2 g/dL (3.4-5.0); ALKALINE PHOSPHATASE 119 U/L (45-117); ANION GAP 8 mmol/L (5-15); BILIRUBIN,TOTAL 0.7 mg/dL (0.2-1.0); CALCIUM 8.4 mg/dL (8.5-10.1); CREATININE 0.44 mg/dL (0.55-1.02); TOTAL PROTEIN 5.4 g/dL (6.4-8.2)
[2017-07-31 06:25] LABS: MD YES
[2017-07-31 06:26] LABS: LYMPH#(MANUAL) 0.26 x10^3/uL (1-3.4); LYMPHS% (MANUAL) 88 % (22-44); SEG#(MANUAL) 0.02 x10^3/uL (1.8-6.8); SEGS% (MANUAL) 8 % (42-75)
[2017-07-31 06:27] LABS: <PLATELET ESTIMATE> DECREASED; <PLT MORPHOLOGY> NORMAL PLT MORPH; ANISOCYTOSIS 1+; BLASTS # (MANUAL) 0.01 x10^3/uL (0-0); BLASTS % (MANUAL) 4 % (0-0)
[2017-07-31] MEDS: PANTOPROZOLE 40MG TABLET PO SCH (07:56)
[2017-07-31] MEDS: DOCUSATE 100 MG CAPSULE PO SCH ×2 (09:06→20:20)
[2017-07-31] MEDS: ALLOPURINOL 300 MG TABLET PO SCH (09:07)
[2017-07-31] MEDS: POSACONAZOLE 200 MG/5 ML ORAL SUSP PO SCH ×2 (09:07→20:19)
[2017-07-31] MEDS: ACYCLOVIR 200 MG CAPSULE PO SCH ×2 (09:07→20:19)
[2017-07-31] MEDS: DIPHENHYDRAMINE 25 MG CAPSULE PO PRN (09:36)
[2017-07-31] MEDS: ACETAMINOPHEN 325 MG TABLET PO PRN ×2 (09:36→22:18)
[2017-07-31] MEDS: SODIUM CHLORIDE 0.9% 1,000 ML IV SCH ×2 (15:00→21:40)
[2017-07-31 16:27] LABS: INTERNATIONAL NORMALIZED RATIO 0.95 (0.93-1.1); PROTHROMBIN TIME 9.9 Seconds (9.6-11.5)
[2017-07-31] MEDS: ONDANSETRON 16 MG, DEXAMETHASONE 10 MG in SODIUM CHLORIDE 0.9% 50 ML IVPB SCH (23:10)
[2017-07-31] MEDS: SODIUM CHLORIDE 0.9% IV SCH (23:57)
[2017-07-31] MEDS: CYTARABINE IV SCH (23:57)
[2017-08-01] MEDS: ACETAMINOPHEN 325 MG TABLET PO PRN (03:55)
[2017-08-01 05:09] VITALS: BP 145/82
[2017-08-01] MEDS: CEFTAROLINE 600 MG in SODIUM CHLORIDE 0.9% 250 ML IV SCH ×2 (05:09→18:15)
[2017-08-01 05:37] LABS: ABSOLUTE RETICS # 0.023 x10^6/uL (0.5-2.5); RETICULOCYTE COUNT % 0.82 % (0.5-1.5)
[2017-08-01 05:38] LABS: MEAN CORPUSCULAR HGB CONC 35.3 g/dL (32.4-35.8); MEAN CORPUSCULAR VOLUME 96.3 fL (80-100); RED BLOOD COUNT 2.85 x10^6/uL (3.82-5.3); RED CELL DISTRIBUTION WIDTH 19.2 % (9.6-15.2)
[2017-08-01 05:47] LABS: ALANINE AMINOTRANSFERASE 59 U/L (12-78); ALBUMIN 2.5 g/dL (3.4-5.0); ANION GAP 7 mmol/L (5-15); CHLORIDE 107 mmol/L (98-107); CREATININE 0.44 mg/dL (0.55-1.02)
[2017-08-01 05:55] LABS: ALKALINE PHOSPHATASE 113 U/L (45-117); BILIRUBIN,TOTAL 1.4 mg/dL (0.2-1.0); CALCIUM 8.3 mg/dL (8.5-10.1)
[2017-08-01 06:15] LABS: MD YES
[2017-08-01 06:33] LABS: MEAN PLATELET VOLUME 7.6 fL (7.4-10.4)
[2017-08-01 06:35] LABS: PLATELET COUNT 31 x10^3/uL (130-400)
[2017-08-01 06:36] LABS: ANISOCYTOSIS 1+; LYMPH#(MANUAL) 0.29 x10^3/uL (1-3.4); LYMPHS% (MANUAL) 96 % (22-44); SEG#(MANUAL) 0.01 x10^3/uL (1.8-6.8); SEGS% (MANUAL) 4 % (42-75)
[2017-08-01 06:37] LABS: <PLATELET ESTIMATE> DECREASED; <PLT MORPHOLOGY> NORMAL PLT MORPH
[2017-08-01 08:25] VITALS: BP 155/78
[2017-08-01] MEDS: PANTOPROZOLE 40MG TABLET PO SCH (09:10)
[2017-08-01] MEDS: POSACONAZOLE 200 MG/5 ML ORAL SUSP PO SCH ×2 (09:10→20:09)
[2017-08-01] MEDS: ACYCLOVIR 200 MG CAPSULE PO SCH ×2 (09:10→20:09)
[2017-08-01] MEDS: DOCUSATE 100 MG CAPSULE PO SCH ×2 (09:10→20:09)
[2017-08-01] MEDS: ALLOPURINOL 300 MG TABLET PO SCH (09:15)
[2017-08-01] MEDS: SODIUM CHLORIDE 0.9% 1,000 ML IV SCH (12:33)
[2017-08-01 14:43] VITALS: BP 155/81
[2017-08-01 18:50] VITALS: BP 152/74
[2017-08-01] MEDS: ONDANSETRON 16 MG, DEXAMETHASONE 10 MG in SODIUM CHLORIDE 0.9% 50 ML IVPB SCH (20:09)
[2017-08-02] VITALS (7 sets, daily range): BP systolic 122–160; BP diastolic 74–83
[2017-08-02] MEDS: SODIUM CHLORIDE 0.9% 1,000 ML IV SCH ×2 (00:45→16:34)
[2017-08-02] MEDS: CEFTAROLINE 600 MG in SODIUM CHLORIDE 0.9% 250 ML IV SCH ×2 (04:37→17:11)
[2017-08-02 06:47] LABS: RETICULOCYTE COUNT % 0.76 % (0.5-1.5)
[2017-08-02 06:57] LABS: ALANINE AMINOTRANSFERASE 67 U/L (12-78); ALBUMIN 2.5 g/dL (3.4-5.0); ANION GAP 8 mmol/L (5-15); CALCIUM 8.1 mg/dL (8.5-10.1); CHLORIDE 106 mmol/L (98-107); CREATININE 0.39 mg/dL (0.55-1.02)
[2017-08-02 06:59] LABS: ALKALINE PHOSPHATASE 117 U/L (45-117); TOTAL PROTEIN 5.9 g/dL (6.4-8.2)
[2017-08-02 07:07] LABS: MD YES
[2017-08-02 07:10] LABS: MEAN CORPUSCULAR HEMOGLOBIN 33.8 pg (27.0-34.8); MEAN CORPUSCULAR HGB CONC 35.4 g/dL (32.4-35.8); MEAN CORPUSCULAR VOLUME 95.5 fL (80-100); MEAN PLATELET VOLUME 7.7 fL (7.4-10.4); RED BLOOD COUNT 2.67 x10^6/uL (3.82-5.3); RED CELL DISTRIBUTION WIDTH 18.4 % (9.6-15.2)
[2017-08-02 07:11] LABS: PLATELET COUNT 20 x10^3/uL (130-400)
[2017-08-02 07:15] LABS: <PLATELET ESTIMATE> DECREASED; <PLT MORPHOLOGY> NORMAL PLT MORPH; ANISOCYTOSIS 1+; LYMPHS% (MANUAL) 100 % (22-44); SEGS% (MANUAL) 0 % (42-75)
[2017-08-02] MEDS: ACYCLOVIR 200 MG CAPSULE PO SCH ×2 (08:42→20:23)
[2017-08-02] MEDS: ALLOPURINOL 300 MG TABLET PO SCH (08:42)
[2017-08-02] MEDS: DOCUSATE 100 MG CAPSULE PO SCH ×2 (08:42→20:23)
[2017-08-02] MEDS: PANTOPROZOLE 40MG TABLET PO SCH (08:42)
[2017-08-02] MEDS: POSACONAZOLE 200 MG/5 ML ORAL SUSP PO SCH ×2 (08:43→20:23)
[2017-08-02] MEDS: ACETAMINOPHEN 325 MG TABLET PO PRN ×2 (11:32→18:21)
[2017-08-02] MEDS: DIPHENHYDRAMINE 25 MG CAPSULE PO PRN (11:32)
[2017-08-02] MEDS: ONDANSETRON 2MG/ML, 2ML IVPush PRN (20:29)
[2017-08-03] MEDS: ACETAMINOPHEN 325 MG TABLET PO PRN ×4 (04:33→21:12)
[2017-08-03] MEDS: CEFTAROLINE 600 MG in SODIUM CHLORIDE 0.9% 250 ML IV SCH (04:33)
[2017-08-03 04:49] VITALS: BP 144/76
[2017-08-03 05:23] LABS: CHLORIDE 106 mmol/L (98-107)
[2017-08-03 05:24] LABS: ABSOLUTE RETICS # 0.025 x10^6/uL (0.5-2.5); RETICULOCYTE COUNT % 1.03 % (0.5-1.5)
[2017-08-03 05:26] LABS: MEAN CORPUSCULAR HEMOGLOBIN 33.6 pg (27.0-34.8); MEAN CORPUSCULAR VOLUME 95.9 fL (80-100); MEAN PLATELET VOLUME 7.9 fL (7.4-10.4); RED BLOOD COUNT 2.43 x10^6/uL (3.82-5.3); RED CELL DISTRIBUTION WIDTH 17.9 % (9.6-15.2)
[2017-08-03 05:28] LABS: PLATELET COUNT 29 x10^3/uL (130-400)
[2017-08-03 05:32] LABS: ALANINE AMINOTRANSFERASE 50 U/L (12-78); ALBUMIN 2.4 g/dL (3.4-5.0); ALKALINE PHOSPHATASE 99 U/L (45-117); ANION GAP 5 mmol/L (5-15); BILIRUBIN,TOTAL 1.2 mg/dL (0.2-1.0); CALCIUM 7.6 mg/dL (8.5-10.1); CREATININE 0.39 mg/dL (0.55-1.02); TOTAL PROTEIN 5.6 g/dL (6.4-8.2)
[2017-08-03 06:12] LABS: MD YES
[2017-08-03 06:16] LABS: LYMPHS% (MANUAL) 100 % (22-44)
[2017-08-03 06:17] LABS: ANISOCYTOSIS 1+
[2017-08-03 06:18] LABS: <PLATELET ESTIMATE> DECREASED; <PLT MORPHOLOGY> NORMAL PLT MORPH
[2017-08-03] MEDS: SODIUM CHLORIDE 0.9% 1,000 ML IV SCH (06:23)
[2017-08-03 07:28] VITALS: BP 134/77
[2017-08-03] MEDS: PANTOPROZOLE 40MG TABLET PO SCH (08:08)
[2017-08-03] MEDS: ACYCLOVIR 200 MG CAPSULE PO SCH ×2 (08:08→21:13)
[2017-08-03] MEDS: POSACONAZOLE 200 MG/5 ML ORAL SUSP PO SCH ×2 (08:08→21:13)
[2017-08-03] MEDS: DOCUSATE 100 MG CAPSULE PO SCH ×2 (08:08→21:12)
[2017-08-03] MEDS: ALLOPURINOL 300 MG TABLET PO SCH (08:08)
[2017-08-03] MEDS: HYDROcodone/APAP 5/325 TABLET PO PRN (10:12)
[2017-08-03] MEDS ORDERED: BENZOCAINE/MENTHOL CAN TP PRN (12:30)
[2017-08-03 13:15] VITALS: BP 135/73
[2017-08-03] MEDS ORDERED: CEFTAROLINE 600 MG in SODIUM CHLORIDE 0.9% 100 ML IV SCH (14:56)
[2017-08-03] MEDS: LEVOFLOXACIN 500 MG TABLET PO SCH (19:08)
[2017-08-03 19:50] VITALS: BP 148/78
[2017-08-04] VITALS (7 sets, daily range): BP systolic 136–166; BP diastolic 62–84
[2017-08-04] MEDS: ACETAMINOPHEN 325 MG TABLET PO PRN ×2 (01:33→05:59)
[2017-08-04 06:12] LABS: ABSOLUTE RETICS # 0.015 x10^6/uL (0.5-2.5); RETICULOCYTE COUNT % 0.64 % (0.5-1.5)
[2017-08-04 06:18] LABS: ALBUMIN 2.3 g/dL (3.4-5.0); ANION GAP 6 mmol/L (5-15); CHLORIDE 104 mmol/L (98-107)
[2017-08-04 06:20] LABS: MEAN CORPUSCULAR HEMOGLOBIN 33.9 pg (27.0-34.8); MEAN CORPUSCULAR HGB CONC 35.4 g/dL (32.4-35.8); MEAN CORPUSCULAR VOLUME 95.8 fL (80-100); RED BLOOD COUNT 2.37 x10^6/uL (3.82-5.3); RED CELL DISTRIBUTION WIDTH 17.5 % (9.6-15.2)
[2017-08-04 06:21] LABS: ALANINE AMINOTRANSFERASE 64 U/L (12-78); ALKALINE PHOSPHATASE 120 U/L (45-117); CREATININE 0.35 mg/dL (0.55-1.02); TOTAL PROTEIN 5.8 g/dL (6.4-8.2)
[2017-08-04 06:22] LABS: PLATELET COUNT 18 x10^3/uL (130-400)
[2017-08-04 06:36] LABS: MD YES
[2017-08-04 06:43] LABS: LYMPHS% (MANUAL) 100 % (22-44)
[2017-08-04 06:45] LABS: <PLATELET ESTIMATE> DECREASED; ANISOCYTOSIS 1+
[2017-08-04 06:46] LABS: <PLT MORPHOLOGY> NORMAL PLT MORPH
[2017-08-04] MEDS: POSACONAZOLE 200 MG/5 ML ORAL SUSP PO SCH ×2 (10:19→20:27)
[2017-08-04] MEDS: PANTOPROZOLE 40MG TABLET PO SCH (10:19)
[2017-08-04] MEDS: ACYCLOVIR 200 MG CAPSULE PO SCH ×2 (10:19→20:28)
[2017-08-04] MEDS: DOCUSATE 100 MG CAPSULE PO SCH ×2 (10:20→20:27)
[2017-08-04] MEDS: ALLOPURINOL 300 MG TABLET PO SCH (10:20)
[2017-08-04] MEDS: HYDROmorphone 1 MG/ML, 1ML IV PRN ×3 (11:10→23:23)
[2017-08-04] MEDS: LEVOFLOXACIN 500 MG TABLET PO SCH (17:52)
[2017-08-05 04:14] VITALS: BP 153/81
[2017-08-05] MEDS: HYDROmorphone 1 MG/ML, 1ML IV PRN ×5 (04:22→20:47)
[2017-08-05 06:22] LABS: ABSOLUTE RETICS # 0.021 x10^6/uL (0.5-2.5); RETICULOCYTE COUNT % 0.89 % (0.5-1.5)
[2017-08-05 06:23] LABS: MEAN CORPUSCULAR HEMOGLOBIN 34.2 pg (27.0-34.8); MEAN CORPUSCULAR HGB CONC 35.7 g/dL (32.4-35.8); MEAN CORPUSCULAR VOLUME 95.8 fL (80-100); MEAN PLATELET VOLUME 7.7 fL (7.4-10.4); RED BLOOD COUNT 2.39 x10^6/uL (3.82-5.3); RED CELL DISTRIBUTION WIDTH 17.2 % (9.6-15.2)
[2017-08-05 06:27] LABS: ALANINE AMINOTRANSFERASE 47 U/L (12-78); ALBUMIN 2.4 g/dL (3.4-5.0); ANION GAP 6 mmol/L (5-15); CALCIUM 7.9 mg/dL (8.5-10.1); CHLORIDE 101 mmol/L (98-107); CREATININE 0.31 mg/dL (0.55-1.02)
[2017-08-05 06:29] LABS: PLATELET COUNT 28 x10^3/uL (130-400)
[2017-08-05 06:34] LABS: ALKALINE PHOSPHATASE 115 U/L (45-117); BILIRUBIN,TOTAL 1.2 mg/dL (0.2-1.0); TOTAL PROTEIN 5.9 g/dL (6.4-8.2)
[2017-08-05 06:48] LABS: MD YES
[2017-08-05 06:50] LABS: LYMPHS% (MANUAL) 100 % (22-44)
[2017-08-05 06:51] LABS: <PLATELET ESTIMATE> DECREASED; <PLT MORPHOLOGY> NORMAL PLT MORPH
[2017-08-05 06:52] LABS: ANISOCYTOSIS 1+
[2017-08-05 06:54] LABS: HCT (SEDRATE) 22.9 % (34.6-47.8)
[2017-08-05 07:22] VITALS: BP 146/77
[2017-08-05] MEDS ORDERED: ACETAMINOPHEN 325 MG TABLET PO PRN (07:30)
[2017-08-05] MEDS ORDERED: POTASSIUM CHLORIDE 20 MEQ TAB.ER.PRT PO ONE (08:00)
[2017-08-05] MEDS: POSACONAZOLE 200 MG/5 ML ORAL SUSP PO SCH ×2 (08:29→20:51)
[2017-08-05] MEDS: DOCUSATE 100 MG CAPSULE PO SCH ×2 (08:30→20:51)
[2017-08-05] MEDS: ACYCLOVIR 200 MG CAPSULE PO SCH ×2 (08:31→20:51)
[2017-08-05] MEDS: PANTOPROZOLE 40MG TABLET PO SCH (08:31)
[2017-08-05] MEDS: ONDANSETRON 2MG/ML, 2ML IVPush PRN ×3 (08:46→20:40)
[2017-08-05] MEDS: ALLOPURINOL 300 MG TABLET PO SCH (10:12)
[2017-08-05 12:27] VITALS: BP 144/78
[2017-08-05] MEDS ORDERED: CATHFLO-ALTEPLASE 2 MG/2 ML CATHFLUSH ONE (13:00)
[2017-08-05] MEDS: LEVOFLOXACIN 500 MG TABLET PO SCH (17:10)
[2017-08-05 19:19] VITALS: BP 134/72
[2017-08-05 19:23] LABS: MICROSCOPIC NOT IND
[2017-08-05 19:25] LABS: CULTURE INDICATED? NO
[2017-08-06] VITALS (13 sets, daily range): BP systolic 114–166; BP diastolic 66–84
[2017-08-06] MEDS: HYDROmorphone 1 MG/ML, 1ML IV PRN ×3 (00:44→08:59)
[2017-08-06] MEDS: ONDANSETRON 2MG/ML, 2ML IVPush PRN ×3 (04:16→21:40)
[2017-08-06 04:34] LABS: ALANINE AMINOTRANSFERASE 49 U/L (12-78); ALBUMIN 2.3 g/dL (3.4-5.0); ANION GAP 6 mmol/L (5-15); CALCIUM 7.7 mg/dL (8.5-10.1); CHLORIDE 97 mmol/L (98-107); CREATININE 0.31 mg/dL (0.55-1.02)
[2017-08-06 04:36] LABS: ALKALINE PHOSPHATASE 137 U/L (45-117); BILIRUBIN,TOTAL 1.4 mg/dL (0.2-1.0); TOTAL PROTEIN 5.7 g/dL (6.4-8.2)
[2017-08-06 06:41] LABS: MEAN CORPUSCULAR HEMOGLOBIN 33.9 pg (27.0-34.8); MEAN CORPUSCULAR HGB CONC 35.5 g/dL (32.4-35.8); MEAN CORPUSCULAR VOLUME 95.4 fL (80-100); RED BLOOD COUNT 2.05 x10^6/uL (3.82-5.3); RED CELL DISTRIBUTION WIDTH 17.1 % (9.6-15.2)
[2017-08-06 07:12] LABS: MD YES
[2017-08-06 07:13] LABS: MEAN PLATELET VOLUME 7.5 fL (7.4-10.4)
[2017-08-06 07:14] LABS: PLATELET COUNT 17 x10^3/uL (130-400)
[2017-08-06 07:15] LABS: LYMPHS% (MANUAL) 100 % (22-44)
[2017-08-06 07:16] LABS: <PLATELET ESTIMATE> DECREASED; <PLT MORPHOLOGY> NORMAL PLT MORPH; ANISOCYTOSIS 1+; SEGS% (MANUAL) 0 % (42-75)
[2017-08-06] MEDS ORDERED: MAGNESIUM CITRATE 300ML ORAL SOL PO PRN (08:30)
[2017-08-06] MEDS: ONDANSETRON ODT 4 MG PO PRN (08:57)
[2017-08-06] MEDS: ACYCLOVIR 200 MG CAPSULE PO SCH ×2 (08:59→19:55)
[2017-08-06] MEDS: ACETAMINOPHEN 325 MG TABLET PO PRN (08:59)
[2017-08-06] MEDS: POTASSIUM CHLORIDE 20 MEQ TAB.ER.PRT PO SCH (08:59)
[2017-08-06] MEDS: DOCUSATE 100 MG CAPSULE PO SCH ×2 (09:00→19:55)
[2017-08-06] MEDS: PANTOPROZOLE 40MG TABLET PO SCH (09:00)
[2017-08-06] MEDS: ALLOPURINOL 300 MG TABLET PO SCH (09:00)
[2017-08-06] MEDS: POSACONAZOLE 200 MG/5 ML ORAL SUSP PO SCH ×2 (09:00→19:56)
[2017-08-06] MEDS: DIPHENHYDRAMINE 25 MG CAPSULE PO PRN (09:00)
[2017-08-06] MEDS: HYDROcodone/APAP 5/325 TABLET PO PRN ×4 (11:58→23:49)
[2017-08-06] MEDS: LEVOFLOXACIN 500 MG TABLET PO SCH (15:57)
[2017-08-07] VITALS (8 sets, daily range): BP systolic 116–178; BP diastolic 68–84
[2017-08-07] MEDS: ONDANSETRON 2MG/ML, 2ML IVPush PRN (04:28)
[2017-08-07 06:23] LABS: ABSOLUTE RETICS # 0.011 x10^6/uL (0.5-2.5); RETICULOCYTE COUNT % 0.43 % (0.5-1.5)
[2017-08-07 06:25] LABS: MEAN CORPUSCULAR HEMOGLOBIN 33.6 pg (27.0-34.8); MEAN CORPUSCULAR HGB CONC 36.2 g/dL (32.4-35.8); MEAN CORPUSCULAR VOLUME 92.9 fL (80-100); MEAN PLATELET VOLUME 7.6 fL (7.4-10.4); RED CELL DISTRIBUTION WIDTH 16.8 % (9.6-15.2)
[2017-08-07 06:28] LABS: PLATELET COUNT 6 x10^3/uL (130-400)
[2017-08-07 06:30] LABS: CALCIUM 7.5 mg/dL (8.5-10.1); CHLORIDE 95 mmol/L (98-107)
[2017-08-07 06:35] LABS: ALANINE AMINOTRANSFERASE 45 U/L (12-78); ALBUMIN 2.2 g/dL (3.4-5.0); ALKALINE PHOSPHATASE 129 U/L (45-117); ANION GAP 6 mmol/L (5-15); BILIRUBIN,TOTAL 4.1 mg/dL (0.2-1.0); CREATININE 0.47 mg/dL (0.55-1.02); TOTAL PROTEIN 5.6 g/dL (6.4-8.2)
[2017-08-07 06:53] LABS: MD YES
[2017-08-07 06:57] LABS: ANISOCYTOSIS 1+; LYMPHS% (MANUAL) 100 % (22-44); SEGS% (MANUAL) 0 % (42-75)
[2017-08-07 06:58] LABS: <PLATELET ESTIMATE> DECREASED; <PLT MORPHOLOGY> NORMAL PLT MORPH
[2017-08-07] MEDS: HYDROmorphone 1 MG/ML, 1ML IV PRN ×2 (08:23→21:51)
[2017-08-07] MEDS: DOCUSATE 100 MG CAPSULE PO SCH ×2 (08:24→19:44)
[2017-08-07] MEDS: ONDANSETRON ODT 4 MG PO PRN (08:36)
[2017-08-07] MEDS: DIPHENHYDRAMINE 25 MG CAPSULE PO PRN (08:36)
[2017-08-07] MEDS: ACETAMINOPHEN 325 MG TABLET PO PRN (08:36)
[2017-08-07] MEDS ORDERED: LIDOCAINE 2%, 20ML ONE (09:18)
[2017-08-07] MEDS ORDERED: SODIUM CHLORIDE 0.9% 1,000 ML IV SCH ×2 (09:30)
[2017-08-07] MEDS ORDERED: FENTANYL PF 100 MCG/2ML ONE (12:30)
[2017-08-07] MEDS ORDERED: MIDAZOLAM 1 MG/ML, 5ML ONE (12:31)
[2017-08-07] MEDS ORDERED: NALOXONE 1 MG/ML, 2ML ONE (12:31)
[2017-08-07] MEDS ORDERED: FLUMAZENIL 0.1 MG/1 ML, 5ML ONE (12:31)
[2017-08-07] MEDS: ACYCLOVIR 200 MG CAPSULE PO SCH ×2 (14:24→19:44)
[2017-08-07] MEDS: ALLOPURINOL 300 MG TABLET PO SCH (14:24)
[2017-08-07] MEDS: POTASSIUM CHLORIDE 20 MEQ TAB.ER.PRT PO SCH (14:24)
[2017-08-07] MEDS: PANTOPROZOLE 40MG TABLET PO SCH (14:24)
[2017-08-07] MEDS: HYDROcodone/APAP 5/325 TABLET PO PRN ×2 (14:24→18:31)
[2017-08-07] MEDS: POSACONAZOLE 200 MG/5 ML ORAL SUSP PO SCH ×2 (14:28→19:44)
[2017-08-07] MEDS: LEVOFLOXACIN 500 MG TABLET PO SCH (17:52)
[2017-08-07 20:36] LABS: BILIRUBIN, DIRECT 2.8 mg/dL (0.1-0.2); BILIRUBIN,INDIRECT 0.8 mg/dL (0.0-2.0); BILIRUBIN,TOTAL 3.6 mg/dL (0.2-1.0)
[2017-08-08] VITALS (13 sets, daily range): BP systolic 107–148; BP diastolic 67–82
[2017-08-08] MEDS: HYDROcodone/APAP 5/325 TABLET PO PRN ×5 (00:13→22:24)
[2017-08-08] MEDS: HYDROmorphone 1 MG/ML, 1ML IV PRN ×3 (03:33→19:22)
[2017-08-08] MEDS: ONDANSETRON 2MG/ML, 2ML IVPush PRN ×3 (05:13→19:30)
[2017-08-08 06:26] LABS: ABSOLUTE RETICS # 0.011 x10^6/uL (0.5-2.5); RETICULOCYTE COUNT % 0.47 % (0.5-1.5)
[2017-08-08 06:31] LABS: MEAN CORPUSCULAR HEMOGLOBIN 33.2 pg (27.0-34.8); MEAN CORPUSCULAR HGB CONC 35.5 g/dL (32.4-35.8); MEAN CORPUSCULAR VOLUME 93.4 fL (80-100); MEAN PLATELET VOLUME 7.3 fL (7.4-10.4); RED BLOOD COUNT 2.27 x10^6/uL (3.82-5.3); RED CELL DISTRIBUTION WIDTH 16.9 % (9.6-15.2)
[2017-08-08 06:32] LABS: CHLORIDE 98 mmol/L (98-107)
[2017-08-08 06:45] LABS: ALANINE AMINOTRANSFERASE 37 U/L (12-78); ALBUMIN 2.1 g/dL (3.4-5.0); ALKALINE PHOSPHATASE 128 U/L (45-117); ANION GAP 7 mmol/L (5-15); BILIRUBIN, DIRECT 2.7 mg/dL (0.1-0.2); BILIRUBIN,TOTAL 3.5 mg/dL (0.2-1.0); CALCIUM 7.7 mg/dL (8.5-10.1); CREATININE 0.44 mg/dL (0.55-1.02); TOTAL PROTEIN 5.7 g/dL (6.4-8.2)
[2017-08-08 06:57] LABS: BASOPHILS % (AUTO) 0 % (0-1); EOSINOPHILS % (AUTO) 2 % (1-7); LYMPHOCYTES # (AUTO) 0.14 x10^3/uL (1-3.4); LYMPHOCYTES % (AUTO) 90 % (22-44); MD SCAN; MONOCYTES # (AUTO) 0.01 x10^3/uL (0.2-0.8); MONOCYTES % (AUTO) 4 % (2-9); NEUTROPHILS # (AUTO) 0.01 x10^3/uL (1.8-6.8); NEUTROPHILS % (AUTO) 4 % (42-75)
[2017-08-08 07:01] LABS: PLATELET COUNT 2 x10^3/uL (130-400)
[2017-08-08] MEDS ORDERED: POTASSIUM CHLORIDE 40 MEQ in SODIUM CHLORIDE 0.9% 500 ML IV ONE (08:00)
[2017-08-08] MEDS: ALLOPURINOL 300 MG TABLET PO SCH (08:34)
[2017-08-08] MEDS: PANTOPROZOLE 40MG TABLET PO SCH (08:34)
[2017-08-08] MEDS: ACYCLOVIR 200 MG CAPSULE PO SCH ×2 (08:34→20:50)
[2017-08-08] MEDS: DOCUSATE 100 MG CAPSULE PO SCH ×2 (08:34→20:34)
[2017-08-08] MEDS: POSACONAZOLE 200 MG/5 ML ORAL SUSP PO SCH ×2 (08:34→20:50)
[2017-08-08] MEDS: POTASSIUM CHLORIDE 20 MEQ TAB.ER.PRT PO SCH ×3 (08:35→15:38)
[2017-08-08] MEDS: DIPHENHYDRAMINE 25 MG CAPSULE PO PRN (08:35)
[2017-08-08] MEDS: LEVOFLOXACIN 500 MG TABLET PO SCH (15:38)
[2017-08-08 23:53] LABS: ANION GAP 12 mmol/L (5-15); CALCIUM 7.7 mg/dL (8.5-10.1); CHLORIDE 99 mmol/L (98-107); CREATININE 1.15 mg/dL (0.55-1.02)
[2017-08-08 23:56] LABS: TROPONIN I 0.044 ng/mL (0.000-0.045)
[2017-08-09] VITALS (7 sets, daily range): BP systolic 109–131; BP diastolic 59–70
[2017-08-09] MEDS ORDERED: VANCOMYCIN PER PHARMACY MC PRN
[2017-08-09] MEDS ORDERED: CEFTAZIDIME 2,000 MG in SODIUM CHLORIDE 0.9% 50 ML IV SCH
[2017-08-09] MEDS: ACETAMINOPHEN 325 MG TABLET PO PRN (00:28)
[2017-08-09] MEDS ORDERED: PHARMACOKINETIC MONITORING MC PRN (00:30)
[2017-08-09] MEDS ORDERED: NOREPINEPHRINE 1 MG/ML, 4ML ONE (01:07)
[2017-08-09] MEDS: VANCOMYCIN 1,400 MG in SODIUM CHLORIDE 0.9% 250 ML IV SCH ×2 (01:18→13:12)
[2017-08-09] MEDS: NOREPINEPHRINE 4 MG in SODIUM CHLORIDE 0.9% 246 ML IV PRN ×4 (01:20→14:17)
[2017-08-09] MEDS: POTASSIUM CHLORIDE 10% 40 MEQ/30 ML UDC PO SCH ×3 (01:25→21:01)
[2017-08-09] MEDS ORDERED: SODIUM CHLORIDE 0.9% 1,000ML IVBOLUS ONE ×2 (03:30)
[2017-08-09 03:40] LABS: ALANINE AMINOTRANSFERASE 27 U/L (12-78); ALBUMIN 1.6 g/dL (3.4-5.0); ANION GAP 11 mmol/L (5-15); CHLORIDE 103 mmol/L (98-107); CREATININE 1.31 mg/dL (0.55-1.02)
[2017-08-09 03:42] LABS: ALKALINE PHOSPHATASE 95 U/L (45-117); BILIRUBIN,TOTAL 7.7 mg/dL (0.2-1.0); TOTAL PROTEIN 4.9 g/dL (6.4-8.2)
[2017-08-09 03:56] LABS: ABSOLUTE RETICS # 0.006 x10^6/uL (0.5-2.5); RETICULOCYTE COUNT % 0.23 % (0.5-1.5)
[2017-08-09 04:25] LABS: MEAN CORPUSCULAR HEMOGLOBIN 32.7 pg (27.0-34.8); MEAN CORPUSCULAR HGB CONC 35.3 g/dL (32.4-35.8); MEAN CORPUSCULAR VOLUME 92.8 fL (80-100); MEAN PLATELET VOLUME 9.2 fL (7.4-10.4); RED BLOOD COUNT 2.75 x10^6/uL (3.82-5.3); RED CELL DISTRIBUTION WIDTH 17.7 % (9.6-15.2)
[2017-08-09 04:28] LABS: PLATELET COUNT 4 x10^3/uL (130-400)
[2017-08-09 04:31] LABS: MD YES
[2017-08-09 04:37] LABS: <PLATELET ESTIMATE> DECREASED; ANISOCYTOSIS 1+; LYMPH#(MANUAL) 0.29 x10^3/uL (1-3.4); LYMPHS% (MANUAL) 96 % (22-44); SEG#(MANUAL) 0.01 x10^3/uL (1.8-6.8); SEGS% (MANUAL) 4 % (42-75)
[2017-08-09 04:38] LABS: <PLT MORPHOLOGY> QNS FOR PLT MORPH
[2017-08-09] MEDS: PANTOPROZOLE 40MG TABLET PO SCH (07:34)
[2017-08-09] MEDS: POTASSIUM CHLORIDE 20 MEQ TAB.ER.PRT PO SCH ×2 (09:28→12:57)
[2017-08-09] MEDS: ACYCLOVIR 200 MG CAPSULE PO SCH ×2 (09:29→20:54)
[2017-08-09] MEDS: POSACONAZOLE 200 MG/5 ML ORAL SUSP PO SCH ×2 (09:29→20:55)
[2017-08-09] MEDS: DOCUSATE 100 MG CAPSULE PO SCH (09:30)
[2017-08-09] MEDS: ALLOPURINOL 300 MG TABLET PO SCH (09:30)
[2017-08-09 11:21] LABS: CLOSTRIDIUM DIFFICILE ANTIGEN NEGATIVE; CLOSTRIDIUM DIFFICILE TOXIN NEGATIVE (Negative)
[2017-08-09] MEDS: CEFEPIME 1 GM in DEXTROSE 5% 50 ML IV SCH ×2 (11:31→20:45)
[2017-08-09] MEDS: HEMORRHOIDAL OINT, 28 GM (PREP H) RC PRN ×2 (11:31→20:30)
[2017-08-09] MEDS: METRONIDAZOLE PMX 500MG/100ML 100 ML IV SCH ×2 (12:14→21:29)
[2017-08-09] MEDS: HYDROcodone/APAP 5/325 TABLET PO PRN (13:35)
[2017-08-09] MEDS ORDERED: DIPHENHYDRAMINE 50 MG CAPSULE PO ONE (21:00)
[2017-08-09] MEDS ORDERED: ACETAMINOPHEN 500 MG TABLET PO ONE (21:00)
[2017-08-09] MEDS: TBO-FILGRASTIM 480 MCG/0.8 ML SQ SCH (21:01)
[2017-08-10] MEDS: HEMORRHOIDAL OINT, 28 GM (PREP H) RC PRN (00:07)
[2017-08-10 00:15] VITALS: BP 127/63
[2017-08-10 00:42] VITALS: BP 133/60
[2017-08-10] MEDS: VANCOMYCIN 1,400 MG in SODIUM CHLORIDE 0.9% 250 ML IV SCH (00:58)
[2017-08-10 01:05] VITALS: BP 124/64
[2017-08-10 02:01] VITALS: BP 127/61
[2017-08-10] MEDS: CEFEPIME 1 GM in DEXTROSE 5% 50 ML IV SCH ×3 (04:26→20:52)
[2017-08-10 04:32] VITALS: BP 120/62
[2017-08-10] MEDS: METRONIDAZOLE PMX 500MG/100ML 100 ML IV SCH (05:08)
[2017-08-10 05:21] LABS: ABSOLUTE RETICS # 0.003 x10^6/uL (0.5-2.5); MEAN CORPUSCULAR HEMOGLOBIN 33.4 pg (27.0-34.8); MEAN CORPUSCULAR HGB CONC 35.9 g/dL (32.4-35.8); MEAN CORPUSCULAR VOLUME 92.9 fL (80-100); RED BLOOD COUNT 2.36 x10^6/uL (3.82-5.3); RED CELL DISTRIBUTION WIDTH 17.8 % (9.6-15.2); RETICULOCYTE COUNT % 0.13 % (0.5-1.5)
[2017-08-10 05:26] LABS: PLATELET COUNT 5 x10^3/uL (130-400)
[2017-08-10 05:31] LABS: CHLORIDE 107 mmol/L (98-107)
[2017-08-10 06:00] LABS: ALANINE AMINOTRANSFERASE 18 U/L (12-78); ALBUMIN 1.6 g/dL (3.4-5.0); ALKALINE PHOSPHATASE 70 U/L (45-117); ANION GAP 11 mmol/L (5-15); BILIRUBIN,TOTAL 8.4 mg/dL (0.2-1.0); CALCIUM 7.8 mg/dL (8.5-10.1); TOTAL PROTEIN 4.9 g/dL (6.4-8.2)
[2017-08-10 06:10] LABS: MD SCAN
[2017-08-10 06:15] LABS: BASOPHILS % (AUTO) 0 % (0-1); EOSINOPHILS % (AUTO) 1 % (1-7); LYMPHOCYTES # (AUTO) 0.15 x10^3/uL (1-3.4); LYMPHOCYTES % (AUTO) 91 % (22-44); MONOCYTES % (AUTO) 1 % (2-9); NEUTROPHILS # (AUTO) 0.01 x10^3/uL (1.8-6.8); NEUTROPHILS % (AUTO) 7 % (42-75)
[2017-08-10] MEDS ORDERED: AMIODARONE 150 MG in DEXTROSE 5% 100 ML IV ONE (09:00)
[2017-08-10] MEDS ORDERED: POTASSIUM CHLORIDE 40 MEQ in SODIUM CHLORIDE 0.9% 100 ML IV ONE ×2 (09:00→22:30)
[2017-08-10] MEDS ORDERED: FILTER 0.22 MICRON IV PRN (09:00)
[2017-08-10] MEDS ORDERED: AMIODARONE 900 MG in DEXTROSE 5% 482 ML IV PRN (09:00)
[2017-08-10] MEDS: PANTOPROZOLE 40MG TABLET PO SCH (09:18)
[2017-08-10] MEDS: POTASSIUM CHLORIDE 10% 40 MEQ/30 ML UDC PO SCH ×3 (09:20→20:53)
[2017-08-10] MEDS: POSACONAZOLE 200 MG/5 ML ORAL SUSP PO SCH ×2 (09:20→20:53)
[2017-08-10] MEDS: ALLOPURINOL 300 MG TABLET PO SCH (09:21)
[2017-08-10] MEDS: ACYCLOVIR 200 MG CAPSULE PO SCH ×2 (09:21→20:53)
[2017-08-10] MEDS: HYDROcodone/APAP 5/325 TABLET PO PRN (09:22)
[2017-08-10] MEDS: ONDANSETRON 2MG/ML, 2ML IVPush PRN ×2 (09:22→13:41)
[2017-08-10] MEDS: TBO-FILGRASTIM 480 MCG/0.8 ML SQ SCH (15:01)
[2017-08-10] MEDS: KSCALE TO 4.5 IV SCH (20:00)
[2017-08-10] MEDS ORDERED: MAGNESIUM SULFATE PMX 4GM/100M 100 ML IV ONE (20:00)
[2017-08-11] VITALS (10 sets, daily range): BP systolic 142–154; BP diastolic 62–88
[2017-08-11] MEDS: CEFEPIME 1 GM in DEXTROSE 5% 50 ML IV SCH ×3 (03:27→20:30)
[2017-08-11] MEDS: KSCALE TO 4.5 IV SCH ×4 (04:00→23:00)
[2017-08-11 04:09] LABS: ALANINE AMINOTRANSFERASE 31 U/L (12-78); ALBUMIN 1.5 g/dL (3.4-5.0); ANION GAP 13 mmol/L (5-15); CALCIUM 7.9 mg/dL (8.5-10.1); CHLORIDE 105 mmol/L (98-107); CREATININE 0.82 mg/dL (0.55-1.02)
[2017-08-11 04:15] LABS: ALKALINE PHOSPHATASE 76 U/L (45-117); BILIRUBIN,TOTAL 11.1 mg/dL (0.2-1.0); RETICULOCYTE COUNT % 0.38 % (0.5-1.5)
[2017-08-11 04:35] LABS: MEAN CORPUSCULAR HGB CONC 35.5 g/dL (32.4-35.8); MEAN CORPUSCULAR VOLUME 92.9 fL (80-100); MEAN PLATELET VOLUME 9.2 fL (7.4-10.4); RED BLOOD COUNT 2.68 x10^6/uL (3.82-5.3)
[2017-08-11 04:48] LABS: PLATELET COUNT 3 x10^3/uL (130-400)
[2017-08-11] MEDS ORDERED: POTASSIUM CHLORIDE 40 MEQ in SODIUM CHLORIDE 0.9% 100 ML IV ONE (05:00)
[2017-08-11] MEDS: ONDANSETRON 2MG/ML, 2ML IVPush PRN ×3 (05:10→16:45)
[2017-08-11 05:35] LABS: LYMPH#(MANUAL) 0.29 x10^3/uL (1-3.4); LYMPHS% (MANUAL) 96 % (22-44); MD YES; SEG#(MANUAL) 0.01 x10^3/uL (1.8-6.8); SEGS% (MANUAL) 4 % (42-75)
[2017-08-11 05:36] LABS: <PLATELET ESTIMATE> DECREASED; <PLT MORPHOLOGY> QNS FOR PLT MORPH; ANISOCYTOSIS 1+
[2017-08-11] MEDS: PANTOPROZOLE 40MG TABLET PO SCH (06:56)
[2017-08-11] MEDS: HEMORRHOIDAL OINT, 28 GM (PREP H) RC PRN (06:58)
[2017-08-11] MEDS: POTASSIUM CHLORIDE 10% 40 MEQ/30 ML UDC PO SCH (07:43)
[2017-08-11] MEDS: ACYCLOVIR 200 MG CAPSULE PO SCH ×2 (08:11→21:00)
[2017-08-11] MEDS: DIPHENHYDRAMINE 25 MG CAPSULE PO PRN (08:11)
[2017-08-11] MEDS: ALLOPURINOL 300 MG TABLET PO SCH (08:11)
[2017-08-11] MEDS: POSACONAZOLE 200 MG/5 ML ORAL SUSP PO SCH ×2 (08:11→21:00)
[2017-08-11] MEDS ORDERED: TPN PER PHARMACY MC SCH (10:00)
[2017-08-11] MEDS: TBO-FILGRASTIM 480 MCG/0.8 ML SQ SCH (10:47)
[2017-08-11] MEDS ORDERED: POTASSIUM PHOSPHATE 44 MEQ in SODIUM CHLORIDE 0.9% 500 ML IV ONE (11:00)
[2017-08-11] MEDS: AMIODARONE 900 MG in DEXTROSE 5% 482 ML IV PRN (13:46)
[2017-08-11] MEDS ORDERED: FILTER 0.22 MICRON IV PRN (14:00)
[2017-08-11] MEDS ORDERED: FILTER, DISP 1.2 MICRON FOR TPN/PVN IV PRN ×2 (14:00→17:00)
[2017-08-11] MEDS: HYDROmorphone 1 MG/ML, 1ML IV PRN (16:36)
[2017-08-11] MEDS ORDERED: DEXTROSE 10% 500 ML IV PRN (17:00)
[2017-08-11] MEDS ORDERED: FAT EMULSIONS IV SCH (17:00)
[2017-08-11] MEDS ORDERED: DEXTROSE 50%, 50ML SYRINGE IVPush PRN (17:00)
[2017-08-11] MEDS ORDERED: DEXTROSE 70% IV SCH (17:00)
[2017-08-11] MEDS ORDERED: AMINO ACID 10% IV SCH (17:00)
[2017-08-11] MEDS ORDERED: [UNRECOGNIZED DRUG - OTHER] IV SCH (17:00)
[2017-08-11] MEDS ORDERED: AMIODARONE 200 MG TABLET PO SCH (21:00)
[2017-08-11] MEDS: INSULIN REGULAR MEDIUM DOSE Q6H X 48HRS SQ-INSULIN SCH (23:14)
[2017-08-11] MEDS ORDERED: POTASSIUM CHLORIDE 30 MEQ in SODIUM CHLORIDE 0.9% 100 ML IV ONE (23:45)
[2017-08-11] MEDS ORDERED: ACETAMINOPHEN 650 MG SUPP ONE (23:49)
[2017-08-12] MEDS ORDERED: ACETAMINOPHEN 650 MG SUPP PR ONE
[2017-08-12] MEDS: CEFEPIME 1 GM in DEXTROSE 5% 50 ML IV SCH ×3 (04:09→19:54)
[2017-08-12] MEDS: KSCALE TO 4.5 IV SCH ×4 (05:00→23:00)
[2017-08-12 06:24] LABS: ABSOLUTE RETICS # 0.012 x10^6/uL (0.5-2.5); MEAN CORPUSCULAR HEMOGLOBIN 32.8 pg (27.0-34.8); MEAN CORPUSCULAR HGB CONC 35.6 g/dL (32.4-35.8); MEAN CORPUSCULAR VOLUME 92.1 fL (80-100); RED BLOOD COUNT 2.79 x10^6/uL (3.82-5.3); RED CELL DISTRIBUTION WIDTH 16.8 % (9.6-15.2); RETICULOCYTE COUNT % 0.44 % (0.5-1.5)
[2017-08-12 06:29] LABS: ALANINE AMINOTRANSFERASE 27 U/L (12-78); ALBUMIN 1.4 g/dL (3.4-5.0); ANION GAP 6 mmol/L (5-15); CALCIUM 7.9 mg/dL (8.5-10.1); CHLORIDE 111 mmol/L (98-107)
[2017-08-12 06:31] LABS: TRIGLYCERIDES 201 mg/dL (50-200)
[2017-08-12 06:34] LABS: MD YES
[2017-08-12 06:36] LABS: ALKALINE PHOSPHATASE 72 U/L (45-117); BILIRUBIN,TOTAL 7.7 mg/dL (0.2-1.0); CREATININE 0.59 mg/dL (0.55-1.02); PREALBUMIN 4.2 mg/dL (20.0-40.0); TOTAL PROTEIN 4.9 g/dL (6.4-8.2)
[2017-08-12] MEDS: INSULIN REGULAR MEDIUM DOSE Q6H X 48HRS SQ-INSULIN SCH ×3 (06:38→17:17)
[2017-08-12] MEDS ORDERED: POTASSIUM CHLORIDE PMX 100 ML IV ONE ×2 (07:00→19:30)
[2017-08-12 07:48] LABS: <PLATELET ESTIMATE> DECREASED; <PLT MORPHOLOGY> QNS FOR PLT MORPH; ANISOCYTOSIS 1+
[2017-08-12 07:56] LABS: BAND#(MANUAL) 0.23 x10^3/uL; BANDS%(MANUAL) 19 % (0-7); LYMPH#(MANUAL) 0.34 x10^3/uL (1-3.4); LYMPHS% (MANUAL) 28 % (22-44); METAMYELOCYTES# (MANUAL) 0.02 x10^3/uL (0-0); METAMYELOCYTES% (MANUAL) 2 % (0-1); MONOS#(MANUAL) 0.06 x10^3/uL (0.3-2.7); MONOS% (MANUAL) 5 % (2-9); MYELOCYTES# (MANUAL) 0.06 x10^3/uL (0-0); MYELOCYTES% (MANUAL) 5 % (0-0); PROGRANULOCYTES# (MANUAL) 0.04 x10^3/uL (0-0); PROGRANULOCYTES% (MANUAL) 3 % (0-0); REACTIVE LYMPHS # (MANUAL) 0.05 x10^3/uL (0-0); REACTIVE LYMPHS % (MANUAL) 4 % (0-0); SEG#(MANUAL) 0.41 x10^3/uL (1.8-6.8); SEGS% (MANUAL) 34 % (42-75)
[2017-08-12 07:57] LABS: MEAN PLATELET VOLUME 8.8 fL (7.4-10.4)
[2017-08-12 08:03] LABS: PLATELET COUNT 5 x10^3/uL (130-400)
[2017-08-12] MEDS: ALLOPURINOL 300 MG TABLET PO SCH (09:00)
[2017-08-12] MEDS: ACYCLOVIR 200 MG CAPSULE PO SCH ×2 (09:00→21:58)
[2017-08-12] MEDS ORDERED: FUROSEMIDE 20 MG/2 ML IV ONE (09:00)
[2017-08-12] MEDS: POSACONAZOLE 200 MG/5 ML ORAL SUSP PO SCH ×2 (09:00→21:59)
[2017-08-12 09:33] VITALS: BP 162/75
[2017-08-12 09:48] VITALS: BP 152/68
[2017-08-12 10:03] VITALS: BP 150/70
[2017-08-12] MEDS: METRONIDAZOLE PMX 500MG/100ML 100 ML IV SCH ×2 (10:04→17:17)
[2017-08-12 10:30] VITALS: BP 152/68
[2017-08-12] MEDS: TBO-FILGRASTIM 480 MCG/0.8 ML SQ SCH (12:51)
[2017-08-12] MEDS ORDERED: POTASSIUM CHLORIDE 30 MEQ in SODIUM CHLORIDE 0.9% 100 ML IV ONE (13:00)
[2017-08-12] MEDS: PANTOPROZOLE 40MG TABLET PO SCH (13:33)
[2017-08-12] MEDS: ACETAMINOPHEN 325 MG TABLET PO PRN (15:26)
[2017-08-12] MEDS ORDERED: FAT EMULSIONS IV SCH ×2 (17:00)
[2017-08-12] MEDS ORDERED: [UNRECOGNIZED DRUG - OTHER] IV SCH (17:00)
[2017-08-12] MEDS ORDERED: [UNRECOGNIZED DRUG - OTHER] IV SCH (17:00)
[2017-08-12] MEDS ORDERED: AMINO ACID 10% IV SCH ×2 (17:00)
[2017-08-12] MEDS ORDERED: DEXTROSE 70% IV SCH ×2 (17:00)
[2017-08-12] MEDS: AMIODARONE 900 MG in DEXTROSE 5% 482 ML IV PRN (19:22)
[2017-08-12] MEDS: ONDANSETRON 2MG/ML, 2ML IVPush PRN (21:55)
[2017-08-13] MEDS: INSULIN REGULAR MEDIUM DOSE Q6H X 48HRS SQ-INSULIN SCH ×5 (00:01→23:00)
[2017-08-13] MEDS: METRONIDAZOLE PMX 500MG/100ML 100 ML IV SCH ×3 (00:02→18:14)
[2017-08-13] MEDS ORDERED: POTASSIUM CHLORIDE PMX 100 ML IV ONE ×2 (00:30→04:30)
[2017-08-13] MEDS: CEFEPIME 1 GM in DEXTROSE 5% 50 ML IV SCH ×3 (03:00→20:47)
[2017-08-13 03:44] LABS: ABSOLUTE RETICS # 0.009 x10^6/uL (0.5-2.5); RETICULOCYTE COUNT % 0.28 % (0.5-1.5)
[2017-08-13 03:58] LABS: ALBUMIN 1.2 g/dL (3.4-5.0); ANION GAP 7 mmol/L (5-15); CALCIUM 7.6 mg/dL (8.5-10.1); CHLORIDE 103 mmol/L (98-107)
[2017-08-13 04:02] LABS: ALANINE AMINOTRANSFERASE 30 U/L (12-78); ALKALINE PHOSPHATASE 90 U/L (45-117); BILIRUBIN, DIRECT 5.3 mg/dL (0.1-0.2); BILIRUBIN,INDIRECT 1.4 mg/dL (0.0-2.0); BILIRUBIN,TOTAL 6.7 mg/dL (0.2-1.0); CREATININE 0.55 mg/dL (0.55-1.02); TOTAL PROTEIN 4.9 g/dL (6.4-8.2)
[2017-08-13 04:14] LABS: MEAN CORPUSCULAR HEMOGLOBIN 32.6 pg (27.0-34.8); MEAN CORPUSCULAR HGB CONC 35.3 g/dL (32.4-35.8); MEAN CORPUSCULAR VOLUME 92.3 fL (80-100); RED BLOOD COUNT 3.06 x10^6/uL (3.82-5.3); RED CELL DISTRIBUTION WIDTH 16.6 % (9.6-15.2)
[2017-08-13] MEDS: KSCALE TO 4.5 IV SCH (04:30)
[2017-08-13 04:33] LABS: MD YES
[2017-08-13 04:34] LABS: MEAN PLATELET VOLUME 7.6 fL (7.4-10.4)
[2017-08-13 04:35] LABS: PLATELET COUNT 6 x10^3/uL (130-400)
[2017-08-13 04:39] LABS: ANISOCYTOSIS 1+; BAND#(MANUAL) 1.85 x10^3/uL; BANDS%(MANUAL) 22 % (0-7); LYMPH#(MANUAL) 1.01 x10^3/uL (1-3.4); LYMPHS% (MANUAL) 12 % (22-44); METAMYELOCYTES# (MANUAL) 0.59 x10^3/uL (0-0); METAMYELOCYTES% (MANUAL) 7 % (0-1); MONOS#(MANUAL) 0.17 x10^3/uL (0.3-2.7); MONOS% (MANUAL) 2 % (2-9); MYELOCYTES# (MANUAL) 0.08 x10^3/uL (0-0); MYELOCYTES% (MANUAL) 1 % (0-0); PROGRANULOCYTES# (MANUAL) 0.25 x10^3/uL (0-0); PROGRANULOCYTES% (MANUAL) 3 % (0-0); SEG#(MANUAL) 4.45 x10^3/uL (1.8-6.8); SEGS% (MANUAL) 53 % (42-75)
[2017-08-13 04:40] LABS: <PLATELET ESTIMATE> DECREASED; <PLT MORPHOLOGY> QNS FOR PLT MORPH; PMNS WITH VACUOLES 1+
[2017-08-13 05:06] VITALS: BP 148/93
[2017-08-13 05:20] VITALS: BP 155/75
[2017-08-13 05:28] VITALS: BP 155/73
[2017-08-13] MEDS ORDERED: MAGNESIUM SULFATE PMX 2GM/50ML 50 ML IV ONE (06:00)
[2017-08-13] MEDS ORDERED: SODIUM PHOSPHATE 20 MMOL in SODIUM CHLORIDE 0.9% 500 ML IV ONE (07:30)
[2017-08-13] MEDS ORDERED: MAGNESIUM SULFATE PMX 4GM/100M 100 ML IV ONE (07:30)
[2017-08-13] MEDS: ONDANSETRON 2MG/ML, 2ML IVPush PRN (08:30)
[2017-08-13] MEDS: ACYCLOVIR 200 MG CAPSULE PO SCH ×2 (09:12→20:48)
[2017-08-13] MEDS: PANTOPROZOLE 40MG TABLET PO SCH (09:12)
[2017-08-13] MEDS: ALLOPURINOL 300 MG TABLET PO SCH (09:12)
[2017-08-13] MEDS: POSACONAZOLE 200 MG/5 ML ORAL SUSP PO SCH ×2 (09:13→20:47)
[2017-08-13] MEDS: AMIODARONE 200 MG TABLET PO SCH ×2 (09:50→20:48)
[2017-08-13] MEDS: INSULIN REGULAR HIGH DOSE Q6H X 48HRS SQ-INSULIN SCH ×2 (17:00→23:25)
[2017-08-13] MEDS ORDERED: AMINO ACID 10% IV SCH (17:00)
[2017-08-13] MEDS ORDERED: DEXTROSE 70% IV SCH (17:00)
[2017-08-13] MEDS ORDERED: [UNRECOGNIZED DRUG - OTHER] IV SCH (17:00)
[2017-08-13] MEDS ORDERED: FAT EMULSIONS IV SCH (17:00)
[2017-08-13 19:52] VITALS: BP 157/79
[2017-08-14 00:49] VITALS: BP 157/80
[2017-08-14] MEDS: METRONIDAZOLE PMX 500MG/100ML 100 ML IV SCH ×3 (01:08→17:00)
[2017-08-14] MEDS: CEFEPIME 1 GM in DEXTROSE 5% 50 ML IV SCH (04:31)
[2017-08-14] MEDS: INSULIN REGULAR HIGH DOSE Q6H X 48HRS SQ-INSULIN SCH ×4 (04:48→23:27)
[2017-08-14 06:29] LABS: MEAN CORPUSCULAR HEMOGLOBIN 32.2 pg (27.0-34.8); MEAN CORPUSCULAR HGB CONC 35.5 g/dL (32.4-35.8); MEAN CORPUSCULAR VOLUME 90.7 fL (80-100); MEAN PLATELET VOLUME 9.3 fL (7.4-10.4); RED BLOOD COUNT 2.96 x10^6/uL (3.82-5.3); RED CELL DISTRIBUTION WIDTH 16.6 % (9.6-15.2); RETICULOCYTE COUNT % 0.32 % (0.5-1.5)
[2017-08-14 06:30] LABS: PLATELET COUNT 8 x10^3/uL (130-400)
[2017-08-14 06:37] LABS: ALANINE AMINOTRANSFERASE 23 U/L (12-78); ALBUMIN 1.2 g/dL (3.4-5.0); ANION GAP 7 mmol/L (5-15); CALCIUM 7.3 mg/dL (8.5-10.1); CHLORIDE 100 mmol/L (98-107); CREATININE 0.58 mg/dL (0.55-1.02)
[2017-08-14 06:39] LABS: ALKALINE PHOSPHATASE 109 U/L (45-117); BILIRUBIN,TOTAL 3.1 mg/dL (0.2-1.0); TOTAL PROTEIN 4.8 g/dL (6.4-8.2)
[2017-08-14 06:48] LABS: MD YES
[2017-08-14 06:51] LABS: BAND#(MANUAL) 4.25 x10^3/uL; BANDS%(MANUAL) 22 % (0-7); BASOS#(MANUAL) 0.19 x10^3/uL (0-0.1); BASOS% (MANUAL) 1 % (0-1); LYMPH#(MANUAL) 1.35 x10^3/uL (1-3.4); LYMPHS% (MANUAL) 7 % (22-44); METAMYELOCYTES# (MANUAL) 0.39 x10^3/uL (0-0); METAMYELOCYTES% (MANUAL) 2 % (0-1); MONOS#(MANUAL) 0.39 x10^3/uL (0.3-2.7); MONOS% (MANUAL) 2 % (2-9); MYELOCYTES# (MANUAL) 1.35 x10^3/uL (0-0); MYELOCYTES% (MANUAL) 7 % (0-0); NRBC % (MANUAL) 1 % (0-1); PROGRANULOCYTES# (MANUAL) 0.39 x10^3/uL (0-0); PROGRANULOCYTES% (MANUAL) 2 % (0-0); SEGS% (MANUAL) 57 % (42-75)
[2017-08-14 06:52] LABS: <PLATELET ESTIMATE> DECREASED; <PLT MORPHOLOGY> QNS FOR PLT MORPH; ANISOCYTOSIS 1+; PMNS WITH VACUOLES 1+; TOXIC GRAN 1+
[2017-08-14 07:24] VITALS: BP 164/81
[2017-08-14] MEDS: PANTOPROZOLE 40MG TABLET PO SCH (08:29)
[2017-08-14] MEDS: POSACONAZOLE 200 MG/5 ML ORAL SUSP PO SCH ×2 (08:29→20:10)
[2017-08-14] MEDS: ALLOPURINOL 300 MG TABLET PO SCH (08:30)
[2017-08-14] MEDS: ACYCLOVIR 200 MG CAPSULE PO SCH (08:30)
[2017-08-14] MEDS: AMIODARONE 200 MG TABLET PO SCH ×2 (08:30→20:10)
[2017-08-14] MEDS: CEFUROXIME 1.5 GM in SODIUM CHLORIDE 0.9% 50 ML IV SCH ×2 (11:49→20:10)
[2017-08-14 14:40] VITALS: BP 164/77
[2017-08-14] MEDS: HYDROmorphone 1 MG/ML, 1ML IV PRN ×2 (15:12→20:27)
[2017-08-14] MEDS ORDERED: [UNRECOGNIZED DRUG - OTHER] IV SCH (17:00)
[2017-08-14] MEDS ORDERED: DEXTROSE 70% IV SCH (17:00)
[2017-08-14] MEDS ORDERED: FAT EMULSIONS IV SCH (17:00)
[2017-08-14] MEDS ORDERED: FILTER, DISP 1.2 MICRON FOR TPN/PVN IV PRN (17:00)
[2017-08-14] MEDS ORDERED: AMINO ACID 10% IV SCH (17:00)
[2017-08-14 19:38] VITALS: BP 155/79
[2017-08-14] MEDS: HYDROCORTISONE/PRAM CRM 2.5-1%, 4GM TP PRN (20:10)
[2017-08-14] MEDS: LIDOCAINE GEL 2%, 5ML TP SCH (20:11)
[2017-08-15] MEDS: HYDROmorphone 1 MG/ML, 1ML IV PRN ×3 (01:15→20:28)
[2017-08-15] MEDS: METRONIDAZOLE PMX 500MG/100ML 100 ML IV SCH ×3 (01:16→18:24)
[2017-08-15 01:36] VITALS: BP 147/77
[2017-08-15] MEDS: CEFUROXIME 1.5 GM in SODIUM CHLORIDE 0.9% 50 ML IV SCH ×3 (04:20→19:52)
[2017-08-15] MEDS: INSULIN REGULAR HIGH DOSE Q6H X 48HRS SQ-INSULIN SCH (05:00)
[2017-08-15 06:34] LABS: ABSOLUTE RETICS # 0.014 x10^6/uL (0.5-2.5); RETICULOCYTE COUNT % 0.48 % (0.5-1.5)
[2017-08-15 06:36] LABS: MEAN CORPUSCULAR HEMOGLOBIN 32.1 pg (27.0-34.8); MEAN CORPUSCULAR HGB CONC 35.4 g/dL (32.4-35.8); MEAN CORPUSCULAR VOLUME 90.6 fL (80-100); RED BLOOD COUNT 2.88 x10^6/uL (3.82-5.3); RED CELL DISTRIBUTION WIDTH 16.5 % (9.6-15.2)
[2017-08-15 06:44] LABS: ANION GAP 7 mmol/L (5-15); CHLORIDE 100 mmol/L (98-107)
[2017-08-15 06:52] LABS: ALANINE AMINOTRANSFERASE 24 U/L (12-78); ALBUMIN 1.1 g/dL (3.4-5.0); ALKALINE PHOSPHATASE 121 U/L (45-117); BILIRUBIN,TOTAL 2.2 mg/dL (0.2-1.0); CALCIUM 7.4 mg/dL (8.5-10.1); CREATININE 0.46 mg/dL (0.55-1.02); TOTAL PROTEIN 4.6 g/dL (6.4-8.2)
[2017-08-15 07:49] LABS: MD YES; MEAN PLATELET VOLUME 10.7 fL (7.4-10.4)
[2017-08-15 07:55] VITALS: BP 157/80
[2017-08-15 08:02] LABS: <PLATELET ESTIMATE> DECREASED; <PLT MORPHOLOGY> NORMAL PLT MORPH; ANISOCYTOSIS 1+; BAND#(MANUAL) 4.48 x10^3/uL; BANDS%(MANUAL) 14 % (0-7); LYMPH#(MANUAL) 3.52 x10^3/uL (1-3.4); LYMPHS% (MANUAL) 11 % (22-44); METAMYELOCYTES# (MANUAL) 0.64 x10^3/uL (0-0); METAMYELOCYTES% (MANUAL) 2 % (0-1); MONOS#(MANUAL) 1.28 x10^3/uL (0.3-2.7); MONOS% (MANUAL) 4 % (2-9); MYELOCYTES# (MANUAL) 0.32 x10^3/uL (0-0); MYELOCYTES% (MANUAL) 1 % (0-0); SEG#(MANUAL) 21.76 x10^3/uL (1.8-6.8); SEGS% (MANUAL) 68 % (42-75); TOXIC GRAN 1+
[2017-08-15 08:06] LABS: PLATELET COUNT 16 x10^3/uL (130-400)
[2017-08-15] MEDS: PANTOPROZOLE 40MG TABLET PO SCH (08:09)
[2017-08-15] MEDS: ALLOPURINOL 300 MG TABLET PO SCH (08:10)
[2017-08-15] MEDS: AMIODARONE 200 MG TABLET PO SCH ×2 (08:10→19:52)
[2017-08-15] MEDS: HYDROCORTISONE/PRAM CRM 2.5-1%, 4GM TP PRN ×2 (08:11→19:52)
[2017-08-15] MEDS: POSACONAZOLE 200 MG/5 ML ORAL SUSP PO SCH ×2 (08:11→19:52)
[2017-08-15] MEDS: LIDOCAINE GEL 2%, 5ML TP SCH ×2 (08:11→19:52)
[2017-08-15 14:34] VITALS: BP 163/77
[2017-08-15] MEDS ORDERED: DEXTROSE 70% IV SCH (17:00)
[2017-08-15] MEDS ORDERED: FAT EMULSIONS IV SCH (17:00)
[2017-08-15] MEDS ORDERED: AMINO ACID 10% IV SCH (17:00)
[2017-08-15] MEDS ORDERED: FILTER, DISP 1.2 MICRON FOR TPN/PVN IV PRN (17:00)
[2017-08-15] MEDS ORDERED: [UNRECOGNIZED DRUG - OTHER] IV SCH (17:00)
[2017-08-15 19:46] VITALS: BP 165/77
[2017-08-16] MEDS: HYDROmorphone 1 MG/ML, 1ML IV PRN ×2 (00:43→12:22)
[2017-08-16 00:47] VITALS: BP 162/79
[2017-08-16] MEDS: METRONIDAZOLE PMX 500MG/100ML 100 ML IV SCH ×3 (02:09→19:36)
[2017-08-16] MEDS: CEFUROXIME 1.5 GM in SODIUM CHLORIDE 0.9% 50 ML IV SCH ×3 (04:29→20:57)
[2017-08-16 06:36] LABS: ABSOLUTE RETICS # 0.025 x10^6/uL (0.5-2.5); RETICULOCYTE COUNT % 0.86 % (0.5-1.5)
[2017-08-16 06:37] LABS: MEAN CORPUSCULAR HEMOGLOBIN 31.9 pg (27.0-34.8); MEAN CORPUSCULAR HGB CONC 35.2 g/dL (32.4-35.8); MEAN CORPUSCULAR VOLUME 90.6 fL (80-100); RED BLOOD COUNT 2.85 x10^6/uL (3.82-5.3); RED CELL DISTRIBUTION WIDTH 16.1 % (9.6-15.2)
[2017-08-16 06:40] LABS: ALANINE AMINOTRANSFERASE 25 U/L (12-78); ALBUMIN 1.1 g/dL (3.4-5.0); ANION GAP 6 mmol/L (5-15); CALCIUM 7.5 mg/dL (8.5-10.1); CHLORIDE 101 mmol/L (98-107); CREATININE 0.44 mg/dL (0.55-1.02)
[2017-08-16 06:45] LABS: ALKALINE PHOSPHATASE 138 U/L (45-117); BILIRUBIN,TOTAL 1.7 mg/dL (0.2-1.0); TOTAL PROTEIN 4.6 g/dL (6.4-8.2)
[2017-08-16 06:55] LABS: MD YES
[2017-08-16 06:59] LABS: ANISOCYTOSIS 1+; LYMPH#(MANUAL) 1.56 x10^3/uL (1-3.4); LYMPHS% (MANUAL) 4 % (22-44); METAMYELOCYTES# (MANUAL) 3.13 x10^3/uL (0-0); METAMYELOCYTES% (MANUAL) 8 % (0-1); MONOS#(MANUAL) 0.78 x10^3/uL (0.3-2.7); MONOS% (MANUAL) 2 % (2-9); MYELOCYTES# (MANUAL) 3.91 x10^3/uL (0-0); MYELOCYTES% (MANUAL) 10 % (0-0); SEG#(MANUAL) 29.72 x10^3/uL (1.8-6.8); SEGS% (MANUAL) 76 % (42-75)
[2017-08-16 07:00] LABS: TOXIC GRAN 2+
[2017-08-16 07:01] LABS: <PLATELET ESTIMATE> DECREASED; <PLT MORPHOLOGY> NORMAL PLT MORPH
[2017-08-16 07:25] LABS: MEAN PLATELET VOLUME 11.5 fL (7.4-10.4)
[2017-08-16 07:30] LABS: PLATELET COUNT 23 x10^3/uL (130-400)
[2017-08-16 07:58] VITALS: BP 168/81
[2017-08-16] MEDS: HYDROCORTISONE/PRAM CRM 2.5-1%, 4GM TP PRN (08:48)
[2017-08-16] MEDS: LIDOCAINE GEL 2%, 5ML TP SCH ×2 (08:48→20:57)
[2017-08-16] MEDS: ALLOPURINOL 300 MG TABLET PO SCH (08:49)
[2017-08-16] MEDS: POSACONAZOLE 200 MG/5 ML ORAL SUSP PO SCH ×2 (08:49→20:57)
[2017-08-16] MEDS: PANTOPROZOLE 40MG TABLET PO SCH (08:49)
[2017-08-16] MEDS: AMIODARONE 200 MG TABLET PO SCH ×2 (08:49→20:57)
[2017-08-16] MEDS: INSULIN REGULAR MEDIUM DOSE QDAY SQ-INSULIN SCH (08:57)
[2017-08-16] MEDS ORDERED: TPN PER PHARMACY MC SCH (11:00)
[2017-08-16 13:26] VITALS: BP 182/90
[2017-08-16] MEDS ORDERED: FAT EMULSIONS IV SCH ×3 (17:00→18:00)
[2017-08-16] MEDS ORDERED: [UNRECOGNIZED DRUG - OTHER] IV SCH (17:00)
[2017-08-16] MEDS ORDERED: DEXTROSE 70% IV SCH ×3 (17:00→18:00)
[2017-08-16] MEDS ORDERED: AMINO ACID 10% IV SCH ×3 (17:00→18:00)
[2017-08-16] MEDS ORDERED: [UNRECOGNIZED DRUG - OTHER] IV SCH (17:00)
[2017-08-16] MEDS ORDERED: FILTER, DISP 1.2 MICRON FOR TPN/PVN IV PRN (17:00)
[2017-08-16] MEDS ORDERED: [UNRECOGNIZED DRUG - OTHER] IV SCH (18:00)
[2017-08-16 19:31] VITALS: BP 170/77
[2017-08-16] MEDS ORDERED: INSULIN REGULAR MEDIUM DOSE QDAY SQ-INSULIN SCH (21:00)
[2017-08-16] MEDS: morphine SULFATE 10 MG/ML, 1ML IVPush PRN ×2 (21:26→22:27)
[2017-08-17] MEDS ORDERED: DEXTROSE 10% 500 ML IV PRN (02:00)
[2017-08-17 03:33] VITALS: BP 158/74
[2017-08-17] MEDS: METRONIDAZOLE PMX 500MG/100ML 100 ML IV SCH ×3 (03:34→19:29)
[2017-08-17 04:01] LABS: ABSOLUTE RETICS # 0.051 x10^6/uL (0.5-2.5); RETICULOCYTE COUNT % 1.84 % (0.5-1.5)
[2017-08-17] MEDS: morphine SULFATE 10 MG/ML, 1ML IVPush PRN ×4 (04:01→18:05)
[2017-08-17 04:08] LABS: ALBUMIN 1.1 g/dL (3.4-5.0); ANION GAP 5 mmol/L (5-15); CALCIUM 7.6 mg/dL (8.5-10.1); CHLORIDE 101 mmol/L (98-107); MEAN CORPUSCULAR HEMOGLOBIN 31.8 pg (27.0-34.8); MEAN CORPUSCULAR HGB CONC 34.7 g/dL (32.4-35.8); MEAN CORPUSCULAR VOLUME 91.6 fL (80-100); MEAN PLATELET VOLUME 10.5 fL (7.4-10.4); RED BLOOD COUNT 2.77 x10^6/uL (3.82-5.3); RED CELL DISTRIBUTION WIDTH 16.4 % (9.6-15.2)
[2017-08-17 04:10] LABS: PLATELET COUNT 41 x10^3/uL (130-400)
[2017-08-17 04:13] LABS: ALANINE AMINOTRANSFERASE 28 U/L (12-78); ALKALINE PHOSPHATASE 165 U/L (45-117); BILIRUBIN,TOTAL 1.4 mg/dL (0.2-1.0); CREATININE 0.45 mg/dL (0.55-1.02); TOTAL PROTEIN 4.8 g/dL (6.4-8.2)
[2017-08-17 04:38] LABS: MD YES
[2017-08-17] MEDS ORDERED: TAMSULOSIN 0.4 MG CAP.ER.24H PO ONE (05:00)
[2017-08-17] MEDS: FLOMAX MC SCH ×3 (05:00→19:24)
[2017-08-17] MEDS: CEFUROXIME 1.5 GM in SODIUM CHLORIDE 0.9% 50 ML IV SCH ×4 (05:10→21:14)
[2017-08-17 05:46] LABS: BAND#(MANUAL) 2.74 x10^3/uL; BANDS%(MANUAL) 6 % (0-7); LYMPH#(MANUAL) 1.82 x10^3/uL (1-3.4); LYMPHS% (MANUAL) 4 % (22-44); METAMYELOCYTES% (MANUAL) 9 % (0-1); MONOS#(MANUAL) 0.46 x10^3/uL (0.3-2.7); MONOS% (MANUAL) 1 % (2-9); MYELOCYTES% (MANUAL) 9 % (0-0); NRBC % (MANUAL) 1 % (0-1); PROGRANULOCYTES# (MANUAL) 0.46 x10^3/uL (0-0); PROGRANULOCYTES% (MANUAL) 1 % (0-0); SEG#(MANUAL) 31.92 x10^3/uL (1.8-6.8); SEGS% (MANUAL) 70 % (42-75)
[2017-08-17 05:51] LABS: ANISOCYTOSIS 1+; POLYCHROMASIA 1+
[2017-08-17 05:52] LABS: <PLATELET ESTIMATE> DECREASED; LARGE PLATELETS 1+; TOXIC GRAN 2+
[2017-08-17] MEDS ORDERED: DEXTROSE 50%, 50ML SYRINGE IVPush PRN (06:00)
[2017-08-17] MEDS ORDERED: INSULIN REGULAR LOW DOSE Q6H X 48HRS SQ-INSULIN SCH (06:00)
[2017-08-17 07:15] VITALS: BP 161/75
[2017-08-17] MEDS: POSACONAZOLE 200 MG/5 ML ORAL SUSP PO SCH ×2 (08:33→21:14)
[2017-08-17] MEDS: AMIODARONE 200 MG TABLET PO SCH ×2 (08:33→21:14)
[2017-08-17] MEDS: ALLOPURINOL 300 MG TABLET PO SCH (08:33)
[2017-08-17] MEDS: LIDOCAINE GEL 2%, 5ML TP SCH ×2 (08:34→21:14)
[2017-08-17] MEDS: INSULIN REGULAR MEDIUM DOSE QDAY SQ-INSULIN SCH (08:39)
[2017-08-17 12:50] VITALS: BP 123/81
[2017-08-17] MEDS: HYDROcodone/APAP 5/325 TABLET PO PRN ×2 (13:04→21:14)
[2017-08-17 13:09] LABS: MICROSCOPIC INDICATED
[2017-08-17 13:33] LABS: CULTURE INDICATED? NO
[2017-08-17 20:31] VITALS: BP 155/79
[2017-08-18] MEDS: morphine SULFATE 10 MG/ML, 1ML IVPush PRN (01:22)
[2017-08-18 02:02] VITALS: BP 158/79
[2017-08-18] MEDS: METRONIDAZOLE PMX 500MG/100ML 100 ML IV SCH ×3 (03:31→20:16)
[2017-08-18] MEDS: HYDROcodone/APAP 5/325 TABLET PO PRN ×4 (03:31→21:30)
[2017-08-18 04:16] LABS: ABSOLUTE RETICS # 0.065 x10^6/uL (0.5-2.5); RETICULOCYTE COUNT % 2.41 % (0.5-1.5)
[2017-08-18 04:20] LABS: MEAN CORPUSCULAR HGB CONC 34.8 g/dL (32.4-35.8); MEAN CORPUSCULAR VOLUME 91.7 fL (80-100); MEAN PLATELET VOLUME 9.9 fL (7.4-10.4); PLATELET COUNT 75 x10^3/uL (130-400)
[2017-08-18 04:23] LABS: ALBUMIN 1.3 g/dL (3.4-5.0); ANION GAP 5 mmol/L (5-15); CALCIUM 7.3 mg/dL (8.5-10.1); CHLORIDE 103 mmol/L (98-107)
[2017-08-18 04:27] LABS: ALANINE AMINOTRANSFERASE 26 U/L (12-78); ALKALINE PHOSPHATASE 159 U/L (45-117); BILIRUBIN,TOTAL 1.5 mg/dL (0.2-1.0); CREATININE 0.48 mg/dL (0.55-1.02); TOTAL PROTEIN 4.8 g/dL (6.4-8.2)
[2017-08-18] MEDS: CEFUROXIME 1.5 GM in SODIUM CHLORIDE 0.9% 50 ML IV SCH ×3 (05:01→21:29)
[2017-08-18 05:58] LABS: MD YES
[2017-08-18 06:02] LABS: BAND#(MANUAL) 5.34 x10^3/uL; BANDS%(MANUAL) 11 % (0-7); LYMPH#(MANUAL) 2.43 x10^3/uL (1-3.4); LYMPHS% (MANUAL) 5 % (22-44); METAMYELOCYTES# (MANUAL) 2.43 x10^3/uL (0-0); METAMYELOCYTES% (MANUAL) 5 % (0-1); MONOS#(MANUAL) 1.46 x10^3/uL (0.3-2.7); MONOS% (MANUAL) 3 % (2-9); MYELOCYTES# (MANUAL) 1.94 x10^3/uL (0-0); MYELOCYTES% (MANUAL) 4 % (0-0); PROGRANULOCYTES# (MANUAL) 0.49 x10^3/uL (0-0); PROGRANULOCYTES% (MANUAL) 1 % (0-0); SEG#(MANUAL) 34.44 x10^3/uL (1.8-6.8); SEGS% (MANUAL) 71 % (42-75)
[2017-08-18 06:03] LABS: ANISOCYTOSIS 1+; POLYCHROMASIA 1+
[2017-08-18 06:04] LABS: <PLATELET ESTIMATE> DECREASED; TOXIC GRAN 2+
[2017-08-18 06:05] LABS: LARGE PLATELETS 1+
[2017-08-18 07:26] VITALS: BP 148/79
[2017-08-18] MEDS ORDERED: MAGNESIUM SULFATE PMX 2GM/50ML 50 ML IV ONE (07:30)
[2017-08-18] MEDS: AMIODARONE 200 MG TABLET PO SCH (08:44)
[2017-08-18] MEDS: HYDROCORTISONE/PRAM CRM 2.5-1%, 4GM TP PRN ×2 (08:45→21:30)
[2017-08-18] MEDS: ALLOPURINOL 300 MG TABLET PO SCH (08:45)
[2017-08-18] MEDS: LIDOCAINE GEL 2%, 5ML TP SCH ×2 (08:45→22:03)
[2017-08-18] MEDS: POSACONAZOLE 200 MG/5 ML ORAL SUSP PO SCH ×2 (08:45→21:30)
[2017-08-18] MEDS ORDERED: TAMSULOSIN 0.4 MG CAP.ER.24H PO SCH (09:00)
[2017-08-18 15:40] VITALS: BP 159/80
[2017-08-18] MEDS: METOPROLOL TARTRATE 25 MG TABLET PO SCH (18:16)
[2017-08-18 20:46] VITALS: BP 159/76
[2017-08-19] MEDS: morphine SULFATE 10 MG/ML, 1ML IVPush PRN ×2 (03:23→18:11)
[2017-08-19] MEDS: METRONIDAZOLE PMX 500MG/100ML 100 ML IV SCH ×3 (03:23→19:48)
[2017-08-19] MEDS: CEFUROXIME 1.5 GM in SODIUM CHLORIDE 0.9% 50 ML IV SCH ×3 (04:47→21:10)
[2017-08-19 04:58] VITALS: BP 151/73
[2017-08-19] MEDS: METOPROLOL TARTRATE 25 MG TABLET PO SCH ×2 (05:58→18:09)
[2017-08-19] MEDS ORDERED: INSULIN REGULAR LOW DOSE QDAY SQ-INSULIN SCH (06:00)
[2017-08-19 06:19] LABS: ABSOLUTE RETICS # 0.085 x10^6/uL (0.5-2.5); HCT (SEDRATE) 25.2 % (34.6-47.8); MEAN CORPUSCULAR HEMOGLOBIN 31.9 pg (27.0-34.8); MEAN CORPUSCULAR HGB CONC 34.6 g/dL (32.4-35.8); MEAN CORPUSCULAR VOLUME 92.1 fL (80-100); MEAN PLATELET VOLUME 10.8 fL (7.4-10.4); PLATELET COUNT 153 x10^3/uL (130-400); RED BLOOD COUNT 2.74 x10^6/uL (3.82-5.3); RETICULOCYTE COUNT % 3.12 % (0.5-1.5)
[2017-08-19 06:24] LABS: ALANINE AMINOTRANSFERASE 38 U/L (12-78); ALBUMIN 1.2 g/dL (3.4-5.0); ANION GAP 4 mmol/L (5-15); CALCIUM 7.3 mg/dL (8.5-10.1); CHLORIDE 105 mmol/L (98-107); CREATININE 0.42 mg/dL (0.55-1.02)
[2017-08-19 06:31] LABS: ALKALINE PHOSPHATASE 313 U/L (45-117); BILIRUBIN,TOTAL 1.3 mg/dL (0.2-1.0); TOTAL PROTEIN 4.7 g/dL (6.4-8.2)
[2017-08-19 06:50] LABS: SEDIMENTATION RATE 95 mm/hr (0-20)
[2017-08-19 07:27] VITALS: BP 149/79
[2017-08-19 07:57] LABS: MD YES
[2017-08-19 08:07] LABS: BAND#(MANUAL) 4.44 x10^3/uL; BANDS%(MANUAL) 12 % (0-7); LYMPH#(MANUAL) 0.74 x10^3/uL (1-3.4); LYMPHS% (MANUAL) 2 % (22-44); METAMYELOCYTES# (MANUAL) 1.48 x10^3/uL (0-0); METAMYELOCYTES% (MANUAL) 4 % (0-1); MONOS#(MANUAL) 1.48 x10^3/uL (0.3-2.7); MONOS% (MANUAL) 4 % (2-9); MYELOCYTES# (MANUAL) 2.22 x10^3/uL (0-0); MYELOCYTES% (MANUAL) 6 % (0-0); PROGRANULOCYTES# (MANUAL) 0.37 x10^3/uL (0-0); PROGRANULOCYTES% (MANUAL) 1 % (0-0); SEG#(MANUAL) 26.27 x10^3/uL (1.8-6.8); SEGS% (MANUAL) 71 % (42-75)
[2017-08-19 08:08] LABS: <PLATELET ESTIMATE> ADEQUATE; <PLT MORPHOLOGY> NORMAL PLT MORPH; ANISOCYTOSIS 1+; POLYCHROMASIA 1+
[2017-08-19 08:09] LABS: TOXIC GRAN 2+
[2017-08-19] MEDS: LIDOCAINE GEL 2%, 5ML TP SCH ×2 (09:10→21:33)
[2017-08-19] MEDS: ALLOPURINOL 300 MG TABLET PO SCH (09:11)
[2017-08-19] MEDS: POSACONAZOLE 200 MG/5 ML ORAL SUSP PO SCH ×2 (09:11→21:33)
[2017-08-19] MEDS: HYDROcodone/APAP 5/325 TABLET PO PRN ×2 (13:10→21:34)
[2017-08-19 14:16] VITALS: BP 148/68
[2017-08-19 19:57] VITALS: BP 160/80
[2017-08-20 01:24] VITALS: BP 161/83
[2017-08-20] MEDS: HYDROcodone/APAP 5/325 TABLET PO PRN (01:26)
[2017-08-20] MEDS: METRONIDAZOLE PMX 500MG/100ML 100 ML IV SCH ×3 (03:20→19:53)
[2017-08-20 03:57] LABS: ABSOLUTE RETICS # 0.094 x10^6/uL (0.5-2.5); RETICULOCYTE COUNT % 3.52 % (0.5-1.5)
[2017-08-20 04:01] LABS: MEAN CORPUSCULAR HGB CONC 34.6 g/dL (32.4-35.8); MEAN CORPUSCULAR VOLUME 92.3 fL (80-100); MEAN PLATELET VOLUME 9.9 fL (7.4-10.4); PLATELET COUNT 242 x10^3/uL (130-400); RED BLOOD COUNT 2.66 x10^6/uL (3.82-5.3); RED CELL DISTRIBUTION WIDTH 17.1 % (9.6-15.2)
[2017-08-20 04:04] LABS: ALBUMIN 1.4 g/dL (3.4-5.0); ANION GAP 5 mmol/L (5-15); CALCIUM 7.2 mg/dL (8.5-10.1); CHLORIDE 105 mmol/L (98-107)
[2017-08-20 04:06] LABS: ALANINE AMINOTRANSFERASE 40 U/L (12-78); ALKALINE PHOSPHATASE 396 U/L (45-117); BILIRUBIN,TOTAL 1.3 mg/dL (0.2-1.0); CREATININE 0.43 mg/dL (0.55-1.02); TOTAL PROTEIN 5.1 g/dL (6.4-8.2)
[2017-08-20] MEDS: CEFUROXIME 1.5 GM in SODIUM CHLORIDE 0.9% 50 ML IV SCH ×3 (04:39→20:58)
[2017-08-20 05:13] LABS: MD YES
[2017-08-20 05:17] LABS: ANISOCYTOSIS 1+; BAND#(MANUAL) 3.54 x10^3/uL; BANDS%(MANUAL) 11 % (0-7); LYMPH#(MANUAL) 1.29 x10^3/uL (1-3.4); LYMPHS% (MANUAL) 4 % (22-44); METAMYELOCYTES# (MANUAL) 0.64 x10^3/uL (0-0); METAMYELOCYTES% (MANUAL) 2 % (0-1); MONOS#(MANUAL) 1.61 x10^3/uL (0.3-2.7); MONOS% (MANUAL) 5 % (2-9); POLYCHROMASIA 1+; SEG#(MANUAL) 25.12 x10^3/uL (1.8-6.8); SEGS% (MANUAL) 78 % (42-75)
[2017-08-20 05:18] LABS: <PLATELET ESTIMATE> ADEQUATE; LARGE PLATELETS 1+
[2017-08-20] MEDS: HYDROCORTISONE/PRAM CRM 2.5-1%, 4GM TP PRN (05:58)
[2017-08-20] MEDS: METOPROLOL TARTRATE 25 MG TABLET PO SCH ×2 (06:26→19:53)
[2017-08-20 07:09] VITALS: BP 157/82
[2017-08-20] MEDS: POSACONAZOLE 200 MG/5 ML ORAL SUSP PO SCH (09:00)
[2017-08-20] MEDS: ALLOPURINOL 300 MG TABLET PO SCH (10:08)
[2017-08-20] MEDS: LIDOCAINE GEL 2%, 5ML TP SCH ×2 (10:08→20:58)
[2017-08-20] MEDS: OXYcodone 5 MG/5 ML ORAL.SOL UDC PO PRN ×3 (10:23→22:12)
[2017-08-20] MEDS ORDERED: POTASSIUM CHLORIDE 20 MEQ TAB.ER.PRT PO ONE (12:30)
[2017-08-20 13:35] VITALS: BP 157/84
[2017-08-20] MEDS: ONDANSETRON 2MG/ML, 2ML IVPush PRN (16:02)
[2017-08-20 19:10] VITALS: BP 163/83
[2017-08-21 02:57] VITALS: BP 152/77
[2017-08-21] MEDS: METRONIDAZOLE PMX 500MG/100ML 100 ML IV SCH ×3 (03:44→19:51)
[2017-08-21 04:22] LABS: ABSOLUTE RETICS # 0.109 x10^6/uL (0.5-2.5); MD YES; MEAN CORPUSCULAR HEMOGLOBIN 32.5 pg (27.0-34.8); MEAN CORPUSCULAR HGB CONC 35.3 g/dL (32.4-35.8); MEAN CORPUSCULAR VOLUME 92.1 fL (80-100); MEAN PLATELET VOLUME 9.3 fL (7.4-10.4); PLATELET COUNT 326 x10^3/uL (130-400); RED BLOOD COUNT 2.66 x10^6/uL (3.82-5.3); RED CELL DISTRIBUTION WIDTH 16.9 % (9.6-15.2); RETICULOCYTE COUNT % 4.09 % (0.5-1.5)
[2017-08-21 04:28] LABS: ALANINE AMINOTRANSFERASE 46 U/L (12-78); ALBUMIN 1.4 g/dL (3.4-5.0); ANION GAP 6 mmol/L (5-15); CALCIUM 7.5 mg/dL (8.5-10.1); CHLORIDE 105 mmol/L (98-107); CREATININE 0.41 mg/dL (0.55-1.02)
[2017-08-21 04:33] LABS: ALKALINE PHOSPHATASE 445 U/L (45-117); BILIRUBIN,TOTAL 1.1 mg/dL (0.2-1.0); TOTAL PROTEIN 5.2 g/dL (6.4-8.2)
[2017-08-21 05:06] LABS: ANISOCYTOSIS 1+; BAND#(MANUAL) 3.34 x10^3/uL; BANDS%(MANUAL) 13 % (0-7); LYMPH#(MANUAL) 2.31 x10^3/uL (1-3.4); LYMPHS% (MANUAL) 9 % (22-44); MONOS#(MANUAL) 0.77 x10^3/uL (0.3-2.7); MONOS% (MANUAL) 3 % (2-9); MYELOCYTES# (MANUAL) 1.03 x10^3/uL (0-0); MYELOCYTES% (MANUAL) 4 % (0-0); SEG#(MANUAL) 18.25 x10^3/uL (1.8-6.8); SEGS% (MANUAL) 71 % (42-75)
[2017-08-21 05:07] LABS: POLYCHROMASIA 1+; TOXIC GRAN 1+
[2017-08-21 05:08] LABS: <PLATELET ESTIMATE> ADEQUATE; LARGE PLATELETS 1+
[2017-08-21] MEDS: CEFUROXIME 1.5 GM in SODIUM CHLORIDE 0.9% 50 ML IV SCH ×3 (05:13→21:04)
[2017-08-21] MEDS: METOPROLOL TARTRATE 25 MG TABLET PO SCH ×2 (05:13→19:51)
[2017-08-21] MEDS: LIDOCAINE GEL 2%, 5ML TP SCH ×2 (10:21→21:00)
[2017-08-21] MEDS: ALLOPURINOL 300 MG TABLET PO SCH (10:21)
[2017-08-21] MEDS: OXYcodone 5 MG/5 ML ORAL.SOL UDC PO PRN (13:48)
[2017-08-21] MEDS ORDERED: POTASSIUM CHLORIDE 10% 40 MEQ/30 ML UDC PO ONE (15:30)
[2017-08-21] MEDS ORDERED: POTASSIUM CHLORIDE 60 MEQ in SODIUM CHLORIDE 0.9% 1,000 ML IV ONE (18:00)
[2017-08-21 18:54] VITALS: BP 163/76
[2017-08-22 02:10] VITALS: BP 161/84
[2017-08-22] MEDS: METRONIDAZOLE PMX 500MG/100ML 100 ML IV SCH ×3 (03:44→22:28)
[2017-08-22 03:46] LABS: ABSOLUTE RETICS # 0.137 x10^6/uL (0.5-2.5); RETICULOCYTE COUNT % 4.92 % (0.5-1.5)
[2017-08-22 03:50] LABS: MEAN CORPUSCULAR HEMOGLOBIN 31.6 pg (27.0-34.8); MEAN CORPUSCULAR HGB CONC 34.1 g/dL (32.4-35.8); MEAN CORPUSCULAR VOLUME 92.8 fL (80-100); MEAN PLATELET VOLUME 9.2 fL (7.4-10.4); PLATELET COUNT 396 x10^3/uL (130-400); RED BLOOD COUNT 2.78 x10^6/uL (3.82-5.3); RED CELL DISTRIBUTION WIDTH 17.5 % (9.6-15.2)
[2017-08-22 03:52] LABS: ALANINE AMINOTRANSFERASE 50 U/L (12-78); ALBUMIN 1.7 g/dL (3.4-5.0); ANION GAP 4 mmol/L (5-15); CALCIUM 7.6 mg/dL (8.5-10.1); CHLORIDE 107 mmol/L (98-107); CREATININE 0.44 mg/dL (0.55-1.02)
[2017-08-22 03:55] LABS: ALKALINE PHOSPHATASE 559 U/L (45-117); BILIRUBIN,TOTAL 0.8 mg/dL (0.2-1.0); TOTAL PROTEIN 5.8 g/dL (6.4-8.2)
[2017-08-22 04:09] LABS: MD YES
[2017-08-22 04:14] LABS: ANISOCYTOSIS 1+; BAND#(MANUAL) 2.02 x10^3/uL; BANDS%(MANUAL) 9 % (0-7); BASOS#(MANUAL) 0.22 x10^3/uL (0-0.1); BASOS% (MANUAL) 1 % (0-1); LYMPHS% (MANUAL) 4 % (22-44); METAMYELOCYTES# (MANUAL) 0.22 x10^3/uL (0-0); METAMYELOCYTES% (MANUAL) 1 % (0-1); MONOS#(MANUAL) 0.22 x10^3/uL (0.3-2.7); MONOS% (MANUAL) 1 % (2-9); MYELOCYTES# (MANUAL) 0.67 x10^3/uL (0-0); MYELOCYTES% (MANUAL) 3 % (0-0); NRBC % (MANUAL) 1 % (0-1); REACTIVE LYMPHS # (MANUAL) 0.67 x10^3/uL (0-0); REACTIVE LYMPHS % (MANUAL) 3 % (0-0); SEG#(MANUAL) 17.47 x10^3/uL (1.8-6.8); SEGS% (MANUAL) 78 % (42-75)
[2017-08-22 04:15] LABS: POLYCHROMASIA 1+; TOXIC GRAN 1+
[2017-08-22 04:18] LABS: <PLATELET ESTIMATE> ADEQUATE; LARGE PLATELETS 1+
[2017-08-22] MEDS: METOPROLOL TARTRATE 25 MG TABLET PO SCH ×2 (05:35→18:28)
[2017-08-22] MEDS: CEFUROXIME 1.5 GM in SODIUM CHLORIDE 0.9% 50 ML IV SCH ×3 (05:35→23:59)
[2017-08-22 07:45] VITALS: BP 162/79
[2017-08-22] MEDS ORDERED: ALBUMIN HUMAN 25% 100 ML IV ONE (08:00)
[2017-08-22] MEDS ORDERED: FUROSEMIDE 40 MG/4 ML IV ONE (08:30)
[2017-08-22] MEDS ORDERED: MAGNESIUM SULFATE PMX 4GM/100M 100 ML IV ONE (08:30)
[2017-08-22] MEDS: LIDOCAINE GEL 2%, 5ML TP SCH ×2 (09:00→21:00)
[2017-08-22] MEDS: TAMSULOSIN 0.4 MG CAP.ER.24H PO SCH (09:41)
[2017-08-22] MEDS: ALLOPURINOL 300 MG TABLET PO SCH (10:28)
[2017-08-22] MEDS ORDERED: CATHFLO-ALTEPLASE 2 MG/2 ML CATHFLUSH ONE (12:00)
[2017-08-22 15:09] VITALS: BP 174/82
[2017-08-22] MEDS ORDERED: TAMSULOSIN 0.4 MG CAP.ER.24H PO ONE (17:30)
[2017-08-22 19:25] VITALS: BP 155/78
[2017-08-22] MEDS: ONDANSETRON 2MG/ML, 2ML IVPush PRN (23:18)
[2017-08-22] MEDS: OXYcodone 5 MG/5 ML ORAL.SOL UDC PO PRN (23:59)
[2017-08-23] VITALS (11 sets, daily range): BP systolic 117–159; BP diastolic 58–77
[2017-08-23 04:02] LABS: ABSOLUTE RETICS # 0.117 x10^6/uL (0.5-2.5); RETICULOCYTE COUNT % 5.22 % (0.5-1.5)
[2017-08-23 04:03] LABS: MEAN CORPUSCULAR HEMOGLOBIN 32.2 pg (27.0-34.8); MEAN CORPUSCULAR HGB CONC 34.7 g/dL (32.4-35.8); MEAN PLATELET VOLUME 8.9 fL (7.4-10.4); PLATELET COUNT 333 x10^3/uL (130-400); RED BLOOD COUNT 2.25 x10^6/uL (3.82-5.3); RED CELL DISTRIBUTION WIDTH 17.8 % (9.6-15.2)
[2017-08-23 04:08] LABS: ALANINE AMINOTRANSFERASE 37 U/L (12-78); ALBUMIN 1.8 g/dL (3.4-5.0); ANION GAP 8 mmol/L (5-15); CALCIUM 7.5 mg/dL (8.5-10.1); CHLORIDE 104 mmol/L (98-107); CREATININE 0.38 mg/dL (0.55-1.02)
[2017-08-23 04:11] LABS: ALKALINE PHOSPHATASE 357 U/L (45-117); BILIRUBIN,TOTAL 0.9 mg/dL (0.2-1.0); TOTAL PROTEIN 5.3 g/dL (6.4-8.2)
[2017-08-23 04:23] LABS: MD YES
[2017-08-23 04:25] LABS: <PLATELET ESTIMATE> ADEQUATE; BAND#(MANUAL) 0.55 x10^3/uL; BANDS%(MANUAL) 4 % (0-7); LYMPH#(MANUAL) 1.37 x10^3/uL (1-3.4); LYMPHS% (MANUAL) 10 % (22-44); METAMYELOCYTES# (MANUAL) 0.41 x10^3/uL (0-0); METAMYELOCYTES% (MANUAL) 3 % (0-1); MONOS#(MANUAL) 0.96 x10^3/uL (0.3-2.7); MONOS% (MANUAL) 7 % (2-9); MYELOCYTES# (MANUAL) 0.27 x10^3/uL (0-0); MYELOCYTES% (MANUAL) 2 % (0-0); POLYCHROMASIA 1+; SEG#(MANUAL) 10.14 x10^3/uL (1.8-6.8); SEGS% (MANUAL) 74 % (42-75)
[2017-08-23 04:26] LABS: LARGE PLATELETS 1+
[2017-08-23] MEDS ORDERED: ACETAMINOPHEN 325 MG TABLET PO ONE (05:00)
[2017-08-23] MEDS: METOPROLOL TARTRATE 25 MG TABLET PO SCH ×2 (06:12→17:28)
[2017-08-23] MEDS: ONDANSETRON 2MG/ML, 2ML IVPush PRN ×3 (06:12→20:43)
[2017-08-23] MEDS: METRONIDAZOLE PMX 500MG/100ML 100 ML IV SCH (06:12)
[2017-08-23] MEDS ORDERED: ALBUMIN HUMAN 25% 100 ML IV PRN (08:00)
[2017-08-23] MEDS ORDERED: POTASSIUM CHLORIDE 20 MEQ TAB.ER.PRT PO ONE ×2 (08:00→13:00)
[2017-08-23] MEDS ORDERED: FUROSEMIDE 40 MG/4 ML IV ONE (08:30)
[2017-08-23] MEDS ORDERED: MAGNESIUM SULFATE PMX 2GM/50ML 50 ML IV ONE (08:30)
[2017-08-23] MEDS: LIDOCAINE GEL 2%, 5ML TP SCH ×2 (09:00→20:44)
[2017-08-23] MEDS: ALLOPURINOL 300 MG TABLET PO SCH (09:20)
[2017-08-23] MEDS: TAMSULOSIN 0.4 MG CAP.ER.24H PO SCH (09:20)
[2017-08-23] MEDS: DIPHENHYDRAMINE 25 MG CAPSULE PO PRN (10:23)
[2017-08-23] MEDS: ACETAMINOPHEN 325 MG TABLET PO PRN (10:23)
[2017-08-23] MEDS: ONDANSETRON ODT 4 MG PO PRN (14:14)
[2017-08-23 18:02] LABS: ANION GAP 8 mmol/L (5-15); CALCIUM 7.7 mg/dL (8.5-10.1); CHLORIDE 103 mmol/L (98-107); CREATININE 0.56 mg/dL (0.55-1.02)
[2017-08-24 00:13] VITALS: BP 160/76
[2017-08-24 03:37] LABS: ALANINE AMINOTRANSFERASE 35 U/L (12-78); ALBUMIN 1.8 g/dL (3.4-5.0); ANION GAP 6 mmol/L (5-15); CALCIUM 7.6 mg/dL (8.5-10.1); CHLORIDE 106 mmol/L (98-107); CREATININE 0.39 mg/dL (0.55-1.02)
[2017-08-24 03:40] LABS: ALKALINE PHOSPHATASE 339 U/L (45-117); TOTAL PROTEIN 5.4 g/dL (6.4-8.2)
[2017-08-24 03:42] LABS: ABSOLUTE RETICS # 0.112 x10^6/uL (0.5-2.5); RETICULOCYTE COUNT % 3.51 % (0.5-1.5)
[2017-08-24 03:44] LABS: MEAN CORPUSCULAR HEMOGLOBIN 31.2 pg (27.0-34.8); MEAN CORPUSCULAR HGB CONC 34.5 g/dL (32.4-35.8); MEAN CORPUSCULAR VOLUME 90.7 fL (80-100); MEAN PLATELET VOLUME 9.1 fL (7.4-10.4); PLATELET COUNT 391 x10^3/uL (130-400); RED BLOOD COUNT 3.18 x10^6/uL (3.82-5.3); RED CELL DISTRIBUTION WIDTH 18.7 % (9.6-15.2)
[2017-08-24 04:20] LABS: MD YES
[2017-08-24 04:24] LABS: BANDS%(MANUAL) 2 % (0-7); EOS#(MANUAL) 0.15 x10^3/uL (0.0-0.4); EOS% (MANUAL) 1 % (1-7); LYMPH#(MANUAL) 1.67 x10^3/uL (1-3.4); LYMPHS% (MANUAL) 11 % (22-44); METAMYELOCYTES% (MANUAL) 2 % (0-1); MONOS#(MANUAL) 0.76 x10^3/uL (0.3-2.7); MONOS% (MANUAL) 5 % (2-9); MYELOCYTES% (MANUAL) 2 % (0-0); REACTIVE LYMPHS # (MANUAL) 0.15 x10^3/uL (0-0); REACTIVE LYMPHS % (MANUAL) 1 % (0-0); SEG#(MANUAL) 11.55 x10^3/uL (1.8-6.8); SEGS% (MANUAL) 76 % (42-75)
[2017-08-24 04:25] LABS: ANISOCYTOSIS 1+; POLYCHROMASIA 1+
[2017-08-24 04:26] LABS: <PLATELET ESTIMATE> ADEQUATE; LARGE PLATELETS 1+; TOXIC GRAN 1+
[2017-08-24 06:38] VITALS: BP 155/98
[2017-08-24] MEDS: METOPROLOL TARTRATE 25 MG TABLET PO SCH (06:39)
[2017-08-24] MEDS ORDERED: POTASSIUM CHLORIDE 20 MEQ TAB.ER.PRT PO ONE ×2 (08:30→12:00)
[2017-08-24] MEDS: LIDOCAINE GEL 2%, 5ML TP SCH (09:07)
[2017-08-24] MEDS: ALLOPURINOL 300 MG TABLET PO SCH (09:07)
[2017-08-24] MEDS: ONDANSETRON 2MG/ML, 2ML IVPush PRN (09:07)
[2017-08-24] MEDS ORDERED: METO25TA35 PO (09:51)
[2017-08-24] MEDS ORDERED: ALLO300T PO (09:51)
[2017-08-24] MEDS ORDERED: LIDO5JEL7 TP (09:51)
[2017-08-24] MEDS ORDERED: ALPR0.254 PO (09:51)
[2017-08-24] MEDS ORDERED: OXYC5SOL8 PO (09:51)
[2017-08-24] MEDS ORDERED: FURO40TA6 PO (09:55)
[2017-08-24] MEDS ORDERED: POTA20PA25 PO (09:56)
[2017-08-24] MEDS: ACETAMINOPHEN 325 MG TABLET PO PRN (14:43)
[2017-08-24] MEDS: ONDANSETRON ODT 4 MG PO PRN (14:47)
== END 2017-08-24 15:15 | DRG 834 ==
LOC: ED 09:43 → EDIP 10:37 → 3NW 10:59 → 5SO 08-08 23:34 → CCU 08-09 01:02 → 3NW 08-13 14:00
PROVIDERS: ADMIT Hospitalist; ATTEND Hospitalist
PROC: 07DR3ZX Extraction of Iliac Bone Marrow, Percutaneous Approach, Diagnostic (ICD-10-PCS; principal; 2017-07-23)
PROC: 07DR3ZX Extraction of Iliac Bone Marrow, Percutaneous Approach, Diagnostic (ICD-10-PCS; 2017-08-07)
DX: C93.00 Acute monoblastic/monocytic leukemia, not having achieved remission (principal); E43 Unspecified severe protein-calorie malnutrition; A41.51 Sepsis due to Escherichia coli [E. coli]; J96.00 Acute respiratory failure, unspecified whether with hypoxia or hypercapnia; R65.21 Severe sepsis with septic shock; D68.69 Other thrombophilia; J18.9 Pneumonia, unspecified organism; D69.6 Thrombocytopenia, unspecified; E83.39 Other disorders of phosphorus metabolism; E87.1 Hypo-osmolality and hyponatremia; L03.90 Cellulitis, unspecified; L03.114 Cellulitis of left upper limb; I48.91 Unspecified atrial fibrillation; D64.9 Anemia, unspecified; E87.6 Hypokalemia; Z51.11 Encounter for antineoplastic chemotherapy; R73.9 Hyperglycemia, unspecified; R33.9 Retention of urine, unspecified; R04.0 Epistaxis
CPT/HCPCS: 36415; 36569; 71010; 71020; 71275; 74000; 76700; 76937; 77001; 77012; 80048; 80053; 80202; 81001; 81003; 81218; 81245; 81246; 81310; 81403; 82040; 82247; 82248; 82542; 82607; 82746; 82784; 82962; 83605; 83615; 83735; 84100; 84132; 84134; 84145; 84155; 84165; 84439; 84443; 84478; 84484; 84550; 85014; 85018; 85025; 85027; 85045; 85060; 85097; 85379; 85384; 85610; 85651; 85730; 86022; 86140; 86704; 86706; 86708; 86803; 86813; 86850; 86900; 86923; 87040; 87077; 87081; 87086; 87186; 87324; 87340; 88184; 88185; 88237; 88264; 88280; 88305; 88311; 88312; 88313; 88341; 88342; 88374; 93005; 93306; 96361; 96365; 99156; 99157; G0364; J0692; J0696; J0697; J0712; J0713; J1100; J1170; J1453; J1815; J1940; J2250; J2405; J2997; J3010; J3370; J3475; J3480; J3490; J9211; P9047; Q0162; Q9967; C1751; G0461; J0282; J0610; J1200; J1447; J2270; J2310; J3420; J7030; J7040; J7050; J7060; J9100; P9037; P9040; Q0163; Q0177

== ENCOUNTER 2017-09-03 08:44 | Day surgery (SDC) | payer MEDICARE ==
[~2017-09-03] VITALS: Ht 162.6 cm; Wt 70.0 kg
[~2017-09-03 08:44] MED LIST: ALLO300T PO; ALPR0.254 PO; FURO40TA6 PO; LIDO5JEL7 TP; METO25TA35 PO; OXYC5SOL8 PO; POTA20PA25 PO
[2017-09-03] MEDS ORDERED: SODIUM CHLORIDE 0.9% 1,000 ML IV SCH (09:25)
[2017-09-03 09:26] VITALS: BP 146/84
[2017-09-03 09:49] LABS: HEMATOCRIT 36.1 % (34.6-47.8); HEMOGLOBIN 12.3 g/dL (11.7-16.4); WHITE BLOOD COUNT 19.2 x10^3/uL (3.4-10)
[2017-09-03] MEDS ORDERED: LIDOCAINE 2%, 20ML ONE (10:19)
[2017-09-03] MEDS ORDERED: MIDAZOLAM 1 MG/ML, 5ML ONE (10:39)
[2017-09-03] MEDS ORDERED: FENTANYL PF 100 MCG/2ML ONE ×2 (10:39)
[2017-09-03] MEDS ORDERED: FLUMAZENIL 0.1 MG/1 ML, 5ML ONE (10:39)
[2017-09-03] MEDS ORDERED: NALOXONE 1 MG/ML, 2ML ONE (10:40)
== END 2017-09-03 14:20 | disposition home or self-care (01) ==
LOC: RAD 08:44
PROVIDERS: ATTEND Internal Medicine Hematology & Oncology
DX: C92.00 Acute myeloblastic leukemia, not having achieved remission (principal); I10 Essential (primary) hypertension; Z88.1 Allergy status to other antibiotic agents; Z88.0 Allergy status to penicillin; Z88.8 Allergy status to other drugs, medicaments and biological substances
CPT/HCPCS: 36415; 38221; 77012; 85025; 85060; 85097; 88237; 88264; 88280; 88305; 88311; 88313; 99156; G0364; J2250; J3010; J3490; 99157; J2310